=== PATIENT | male | born 1935 | race Caucasian/White ===

== ENCOUNTER → 2017-10-29 | Outpatient (CLI) | payer OTHER, MEDICARE | LOC: BHLMT 11:00 | PROVIDERS: ATTEND Internal Medicine Interventional Cardiology | DX: I48.91 Unspecified atrial fibrillation (principal); I44.2 Atrioventricular block, complete; Z95.0 Presence of cardiac pacemaker; Z95.1 Presence of aortocoronary bypass graft | CPT/HCPCS: 93017-PO ==

== ENCOUNTER → 2017-10-30 | Outpatient (CLI) | payer OTHER, MEDICARE | LOC: BHLMT 09:00 | PROVIDERS: ATTEND Internal Medicine Cardiovascular Disease | DX: I48.91 Unspecified atrial fibrillation (principal); I05.9 Rheumatic mitral valve disease, unspecified; I07.9 Rheumatic tricuspid valve disease, unspecified | CPT/HCPCS: 93306-PO ==

== ENCOUNTER → 2018-07-15 | Outpatient (CLI) | payer OTHER, MEDICARE | LOC: BHLMT 13:30 | PROVIDERS: ATTEND Internal Medicine Cardiovascular Disease | DX: I48.0 Paroxysmal atrial fibrillation (principal); I44.2 Atrioventricular block, complete; I07.1 Rheumatic tricuspid insufficiency; I25.10 Atherosclerotic heart disease of native coronary artery without angina pectoris; R60.9 Edema, unspecified; R06.09 Other forms of dyspnea; Z98.890 Other specified postprocedural states; Z95.2 Presence of prosthetic heart valve; Z95.0 Presence of cardiac pacemaker | CPT/HCPCS: 93005-PO ==

== ENCOUNTER 2018-07-30 11:38 | Day surgery (SDC) | payer OTHER, MEDICARE ==
[2018-07-30] MEDS ORDERED: fentaNYL 100 MCG/2 ML INJ IVP ONE (11:39)
[2018-07-30] MEDS ORDERED: NS 500 ML IV ONE (11:39)
[2018-07-30] MEDS ORDERED: MIDAZOLAM 2 MG/2 ML VIAL IVP ONE (11:39)
[2018-07-30] MEDS ORDERED: ATROPINE SULFATE 1 MG/10 ML SYR IVP ONE (11:39)
[2018-07-30 12:52] LABS: INR 2.1 (0.83-1.16); PROTIME(PATIENT) 23.6 SEC (12.0-15.0)
[2018-07-30] MEDS ORDERED: PROPOFOL 200 MG/20 ML VIAL ONE (12:53)
--- NOTE | 2018-07-30 13:09 | PDANEPAE ---
ANE History of Present Illness Cv ANE Past Medical History - Pulmonary History Hx Oxygen in Use at Home: No Hx Sleep Apnea: No ANE Review of Systems Review of Systems: - Pacemaker Date Pacemaker Last Checked: 01/14/12 ANE Patient History - Allergies Allergies/Adverse Reactions: PEANUTS/TOMATOES/CITRUS Allergy (Mild, Uncoded 06/24/12 09:48) NOSE "RUNS" - Home Medications Home Medications: Amiodarone HCl 200 mg PO BID 07/30/18 [Last Taken 07/30/18] Aspirin EC [Aspirin EC 81 mg (*)] 81 mg PO DAILY 07/30/18 [Last Taken Unknown] Atorvastatin Calcium 40 mg PO HS 07/30/18 [Last Taken Unknown] Calcium Carbonate/Vitamin D3 [CALCIUM 600 + VIT D TABLET] 2 cap PO DAILY [Last Taken Unknown] Coumadin 1MG (*) 2.5 mg PO DAILY 07/30/18 [Last Taken Unknown] Furosemide [Lasix 40 MG (*)] 40 mg PO DAILY 07/30/18 [Last Taken Unknown] Metoprolol Tartrate 12.5 mg PO BID 07/30/18 [Last Taken Unknown] Multivitamin [One-Daily Multi-Vitamin] 1 tab PO DAILY 07/30/18 [Last Taken Unknown] Omeprazole 20 mg PO DAILY 07/30/18 [Last Taken Unknown] Tamsulosin HCl 0.4 mg PO DAILY 07/30/18 [Last Taken Unknown] Vit C/Vit E AC/Lut/Copper/Zinc [Preservision Lutein Softgel] 1 cap PO BID [Last Taken Unknown] - Smoking Hx Smoking Status: Never smoked ANE Labs/Vital Signs - Labs Result Diagrams: 07/30/18 11:45 - Vital Signs Height: 172.72 cm Weight: 65.771 kg ANE Physical Exam - Airway Neck exam: FROM Mallampati Score: Class 2 Mouth exam: normal dental/mouth exam - Pulmonary Pulmonary: clear to auscultation - Cardiovascular Cardiovascular: irregularly irregular - ASA Status ASA Status: II ANE Anesthesia Plan Anesthesia Plan: GA with mask
[2018-07-30] MEDS ORDERED: NALOXONE HCL 0.4 MG/ML INJ IVP PRN (13:10)
--- NOTE | 2018-07-30 13:10 | POSTANESTH ---
Post Anesthetic Evaluation Cardiovascular Status: Normal, Stable Respiratory Status: Normal, Stable Level of Consciousness/Mental Status: Can Participate in Eval, Mildly Sleepy, Arousable Pain Control: Adequate, Prn Tx Ordered Nausea/Vomiting Control: Adequate, Prn Tx Ordered Complications Possibly Related to Anesthesia: None Noted
--- NOTE | 2018-07-30 13:31 | PDHPUP ---
History & Physical Update H&P update statement: This history and physical update is based on an assessment of the patient which was completed after admission or registration (within 24 hours), but prior to the surgery/procedure. H&P update: H&P reviewed & patient examined, no change in patient's condition since H&P completed
--- NOTE | 2018-07-30 13:32 | PDCARD ---
Cardioversion Procedure Procedure: electrical cardioversion Indications: atrial fibrillation Consent: signed and in chart Anticoagulation: warfarin Procedural Details: Pads were placed in anterior-posterior position. Synchronized cardioversion attempt #1: 200J Results: other (Dual chamber paced rhythm.) Conclusions: successful cardioversion
--- NOTE | 2018-07-31 19:52 | CPEKG ---
Test Reason : OPEN Blood Pressure : / mmHG Vent. Rate : 082 BPM Atrial Rate : 082 BPM P-R Int : 130 ms QRS Dur : 181 ms QT Int : 489 ms P-R-T Axes : -43 -65 101 degrees QTc Int : 572 ms Atrial-ventricular dual-paced rhythm Confirmed by Deonte Amato ([id number]) on 07/31/2018 7:52:10 PM Referred By: Flakito Malin Confirmed By:Deonte Amato
--- NOTE | 2018-07-31 20:03 | CPEKG ---
Test Reason : OPEN Blood Pressure : / mmHG Vent. Rate : 082 BPM Atrial Rate : 192 BPM P-R Int : 033 ms QRS Dur : 166 ms QT Int : 457 ms P-R-T Axes : 000 -60 102 degrees QTc Int : 534 ms Ventricular-paced rhythm Confirmed by Deonte Amato ([id number]) on 07/31/2018 8:02:46 PM Referred By: Flakito Malin Confirmed By:Deonte Amato
== END 2018-07-30 15:00 | disposition home or self-care (01) ==
LOC: FCATH 11:38
PROVIDERS: ATTEND Internal Medicine Cardiovascular Disease
PROC: 5A2204Z Restoration of Cardiac Rhythm, Single (ICD-10-PCS; principal; 2018-07-30)
DX: I48.91 Unspecified atrial fibrillation (principal); Z79.899 Other long term (current) drug therapy
CPT/HCPCS: J0461; J2704

== ENCOUNTER 2018-08-25 11:30 | Inpatient (IN) | payer OTHER, MEDICARE ==
--- NOTE | 2018-08-25 12:15 | EDPHY ---
H & P Time Seen by Provider: 08/25/18 11:51 HPI/ROS: HPI Rib fractures. Difficulty breathing. 83-year-old male by private vehicle with his . He is currently on Coumadin for atrial fibrillation. [place]. He fell while on skis and landed on his left chest wall. He was wearing a helmet. He presented to the emergency department in [facility] with complaint of left anterior lateral rib pain. He had a CT scan Saturday evening was diagnostic for multiple left-sided rib fractures, approximately 6, they offered him admission but he went home and then returned to the emergency department on Saturday morning had a repeat CT scan which did not show any significant effusion or pulmonary contusions and he was discharged to home with oxygen. He comes in our emergency department now with complaint of difficulty breathing and unable to "cough stuff up ". He has had no headache. Denies any neck pain. No nausea or vomiting. No confusion. Denies extremity pain. ROS: Constitutional: No fever, no chills. No weakness. Eyes: No discharge. No changes in vision. ENT: No sore throat. No nasal congestion or rhinorrhea. Respiratory: No cough. As above. Cardiac: No chest pain, no palpitations. Gastrointestinal: No abdominal pain, no vomiting, no diarrhea. Genitourinary: No hematuria. No dysuria or increased frequency with urination. Musculoskeletal: No back pain. No neck pain. No myalgias or arthralgias. Skin: No rashes. Neurological: No headache. No focal weakness or altered sensation. Past medical history: Coronary artery disease, pulmonary hypertension, CABG, AFib/flutter, on Coumadin. Social history: Nonsmoker. Here with his . No alcohol. Physical Exam: General Appearance: Alert, he is not in distress. Intermittent wet sounding cough. This patient is responding to questions appropriately and in full sentences. This patient appears well-hydrated and well-nourished. Head: Normocephalic atraumatic. Face: Facial bones are stable on palpation. Eyes: Pupils equal and round and reactive to light, no pallor or injection. No lid erythema or edema. Respiratory: He does not have retractions. He has significant rhonchi left base and left mid lung colon. No tachypnea. Intermittent wet sounding cough. He has tenderness on palpation anterior axillary line over the mid and lower ribs. Cardiovascular: Regular rate and rhythm. No murmur. Gastrointestinal: Abdomen is soft and nontender, no masses, bowel sounds normal. Neurological: Motor sensory function is intact. Cranial nerves are normal. Cerebellar function intact. Skin: Warm and dry, no rashes. No lacerations, abrasions or contusions. Musculoskeletal: Neck is supple and nontender. The trachea is midline. No midline cervical, thoracic, lumbar or sacral tenderness on palpation. No flank tenderness on palpation. Extremities are symmetrical, full range of motion. All joints in the bilateral upper and bilateral lower extremities range without pain or impingement. No tenderness on palpation of the long bones in the bilateral upper and bilateral lower extremities. Psychiatric: No agitation. No depression. Database: EKG: Imaging: PA chest with left-sided rib series x-ray: Significant for 7 left-sided anterior lateral rib fractures with minimal displacement. No pneumothorax. No hemothorax/pleural effusion noted. No significant pulmonary contusions. Interpreted by me. Procedures: Emergency department course: Triage vital signs reviewed. Pulse oximetry on room air low at 87 to 88%. Vital signs are otherwise normal. On 3 L of nasal cannula oxygen is 94%. He does have a CT rum with his CT imaging from Saturday evening and Saturday morning. This will be loaded on to our system. A PA chest with left-sided rib series x-ray will be obtained to evaluate for any acute developing pneumonitis, pulmonary contusions or effusion. 2:05 p.m., spoke with on-call trauma surgeon Dr. Melvin Youssef. Case discussed in detail with him. We will admit this patient to the hospitalist service primarily and Dr. Youssef will consult for pain management. No acute surgical intervention is required at this time. 2:15 p.m., spoke with on-call hospitalist Dr. Brambila, case discussed in detail with her. She accepts this patient for admission to the hospitalist service with Trauma surgery to consult for trauma related management. I discussed the patient's elevated INR and the need for pain management secondary to his rib fractures. The patient's remaining emergency department course under my care has been uneventful. The patient was admitted in stable condition. Results of all diagnostic testing discussed with the patient. Plan of management discussed with both him and his . All of their questions were answered. Differential Diagnosis: The differential diagnosis on this patient includes but is not limited to multiple rib fractures, hypoxia. Pneumothorax, hemothorax, pulmonary contusions unlikely. This represents a partial list of diagnoses considered. These considerations are based on history, physical exam, past history, reassessment and diagnostic testing. Smoking Status: Never smoked Constitutional: Initial Vital Signs Temperature (C) 36.6 C 08/25/18 11:45 Heart Rate 82 08/25/18 11:45 Respiratory Rate 16 08/25/18 11:45 Blood Pressure 111/98 H 08/25/18 11:45 O2 Sat (%) 88 L 08/25/18 11:45 O2 Delivery Mode Nasal Cannula O2 (L/minute) 2 Allergies/Adverse Reactions: PEANUTS/TOMATOES/CITRUS Allergy (Mild, Uncoded 06/24/12 09:48) NOSE "RUNS" Home Medications: Medication Instructions Recorded Amiodarone HCl 200 mg PO BID 07/30/18 Aspirin EC [Aspirin EC 81 mg (*)] 81 mg PO DAILY 07/30/18 Atorvastatin Calcium 40 mg PO HS 07/30/18 Calcium Carbonate/Vitamin D3 2 cap PO DAILY 07/30/18 [CALCIUM 600 + VIT D TABLET] Coumadin 1MG (*) 2.5 mg PO DAILY 07/30/18 Furosemide [Lasix 40 MG (*)] 40 mg PO DAILY 07/30/18 Metoprolol Tartrate 12.5 mg PO BID 07/30/18 Multivitamin [One-Daily 1 tab PO DAILY 07/30/18 Multi-Vitamin] Omeprazole 20 mg PO DAILY 07/30/18 Tamsulosin HCl 0.4 mg PO DAILY 07/30/18 Vit C/Vit E AC/Lut/Copper/Zinc 1 cap PO BID 07/30/18 [Preservision Lutein Softgel] Medical Decision Making - Diagnostics Imaging Results: Imaging Impressions Ribs w/Chest X-Ray 08/25/18 12:07 Impression: 7 acute, mildly displaced, left rib fractures. - Data Points Laboratory Results: Laboratory Results 08/25/18 12:15 08/25/18 12:15 08/25/18 08/25/18 08/25/18 12:15 12:15 12:15 WBC 8.38 10^3/uL 10^3/uL (3.80-9.50) RBC 3.51 10^6/uL L 10^6/uL (4.40-6.38) Hgb 11.0 g/dL L g/dL (13.7-17.5) Hct 33.5 % L % (40.0-51.0) MCV 95.4 fL fL (81.5-99.8) MCH 31.3 pg pg (27.9-34.1) MCHC 32.8 g/dL g/dL (32.4-36.7) RDW 13.9 % % (11.5-15.2) Plt Count 99 10^3/uL L 10^3/uL (150-400) MPV 9.4 fL fL (8.7-11.7) Neut % (Auto) 85.5 % H % (39.3-74.2) Lymph % (Auto) 6.2 % L % (15.0-45.0) [place] % (Auto) 7.8 % % (4.5-13.0) Eos % (Auto) 0.0 % L % (0.6-7.6) Baso % (Auto) 0.1 % L % (0.3-1.7) Nucleat RBC Rel Count 0.0 % % (0.0-0.2) Absolute Neuts (auto) 7.16 10^3/uL H 10^3/uL (1.70-6.50) Absolute Lymphs (auto) 0.52 10^3/uL L 10^3/uL (1.00-3.00) Absolute Monos (auto) 0.65 10^3/uL 10^3/uL (0.30-0.80) Absolute Eos (auto) 0.00 10^3/uL L 10^3/uL (0.03-0.40) Absolute Basos (auto) 0.01 10^3/uL L 10^3/uL (0.02-0.10) Absolute Nucleated RBC 0.00 10^3/uL 10^3/uL (0-0.01) Immature Gran % 0.4 % % (0.0-1.1) Immature Gran # 0.03 10^3/uL 10^3/uL (0.00-0.10) RBC/WBC/PLT Morphology TNP Platelet Estimate TNP PT 46.0 SEC H SEC (12.0-15.0) INR 5.34 H* (0.83-1.16) APTT 49.0 SEC H SEC (23.0-38.0) Sodium 132 mEq/L L mEq/L (135-145) Potassium 5.0 mEq/L mEq/L (3.5-5.2) Chloride 100 mEq/L mEq/L (97-110) Carbon Dioxide 23 mEq/l mEq/l (22-31) Anion Gap 9 mEq/L mEq/L (6-14) BUN 52 mg/dL H mg/dL (7-23) Creatinine 1.3 mg/dL mg/dL (0.7-1.3) Estimated GFR 53 Glucose 106 mg/dL H mg/dL (70-100) Calcium 8.3 mg/dL L mg/dL (8.5-10.4) Departure - Departure Disposition: [facility] Inpatient Acute Clinical Impression: Multiple fractures of ribs, left side, initial encounter for closed fracture, Anticoagulated on Coumadin Referrals: KENNY JONES [Primary Care Provider] - As per Instructions
[2018-08-25 12:23] LABS: PLATELET COUNT 99 10^3/uL (150-400)
[2018-08-25 13:04] LABS: INR 5.34 (0.83-1.16)
[2018-08-25] MEDS ORDERED: HYDROCODONE/APAP 10/325 TAB PO PRN (15:04)
--- NOTE | 2018-08-25 16:04 | PDGENHP ---
History and Physical - Chief Complaint "trouble breathing" - History of Present Illness 83 y/o male fell skiing at [place] 3 days ago. He was seen at the hospital in [place] and found to have multiple left sided rib fx and he was advised to be admitted for observation. He declined and returned to the [place] with his . He had felt poorly for the week before he fell with a lingering URI and this seemed to get worse over the weekend. He saw his PCP, Dr. German, in [place] this morning because he was having trouble breathing. Dr. German recommended coming to the hospital for evaluation. He was seen in the ED and admitted to the Hospitalist service and Trauma service consultation was requested. He describes a low speed fall on nearly flat terrain and he admits that he felt tired at the end of the run. He was helmeted and did not hit his head or lose consciousness. He was able to ski over to the [facility], which [place] He denies MATTHEWS, visual or hearing disturbances, back pain, abdominal pain, weakness or paresthesias History Information - Allergies/Home Medication List Allergies/Adverse Reactions: PEANUTS/TOMATOES/CITRUS Allergy (Mild, Uncoded 06/24/12 09:48) NOSE "RUNS" Home Medications: Amiodarone HCl 400 mg PO DAILY 07/30/18 [Last Taken 08/25/18] Aspirin EC [Aspirin EC 81 mg (*)] 81 mg PO DAILY 07/30/18 [Last Taken 08/25/18] Calcium Carbonate/Vitamin D3 [CALCIUM 600 + VIT D TABLET] 1 cap PO DAILY [Last Taken 08/25/18] Furosemide [Lasix 40 MG (*)] 40 mg PO BID 07/30/18 [Last Taken 08/25/18] Omeprazole 20 mg PO DAILY 07/30/18 [Last Taken 08/25/18] Vit C/Vit E AC/Lut/Copper/Zinc [Preservision Lutein Softgel] 1 cap PO BID [Last Taken 08/25/18] Warfarin Sodium [Coumadin 2MG (*)] 2 mg PO HS 07/30/18 [Last Taken 08/24/18] Albuterol [Proventil Inhaler HFA (*)] 1 - 2 puffs IH Q4H PRN 08/25/18 [Last Taken Unknown] HYDROcodone/APAP 325 [[place] 10325 (*)] 0.5 - 1 tab PO Q6HRS PRN 08/25/18 [ Last Taken 08/25/18 1 tab] Metoprolol Tartrate [Lopressor 25 mg (*)] 12.5 mg PO BID 08/25/18 [Last Taken ] Multivitamins [Multivitamin (*)] 1 each PO DAILY 08/25/18 [Last Taken 08/25/18] Simvastatin [Zocor] 20 mg PO HS 08/25/18 [Last Taken 08/24/18] Tamsulosin HCl [Flomax 0.4 MG (*)] 0.4 mg PO DAILY 08/25/18 [Last Taken 08/25/18 ] I have personally reviewed and updated: family history, medical history, social history, surgical history - Past Medical History atrial fibrillation (s/p cardioversion) - Surgical History Reports: pacemaker/AICD, coronary stent - Family History Positive for: CAD - Social History Smoking Status: Never smoked Alcohol Use: Rarely Drug Use: None Additional social history: here with Review of Systems Review of Systems: Constitutional: Reports: recent injury, recent illness (URI one week prior to fall with persistant/worsening symptoms after injury) Cardiac: Reports: chest pain Respiratory: Reports: cough, shortness of breath, wheezing Gastrointestinal: Reports: constipation Muscolosketal: Reports: no symptoms Neurological: Reports: no symptoms Hematologic/Lymphatic: Reports: no symptoms Immunologic/Allergy: Reports: other (allergies to peanuts, tomatoes, citrus) Physical Exam Physical Exam: Temp Pulse Resp BP Pulse Ox 36.5 C 80 20 140/86 H 98 08/25/18 15:40 08/25/18 15:40 08/25/18 15:40 08/25/18 15:40 08/25/18 15:40 O2 (L/minute) 2 Lab Data & Imaging Review 08/25/18 12:15 08/25/18 12:15 WBC 8.38 10^3/uL (3.80-9.50) 08/25/18 12:15 RBC 3.51 10^6/uL (4.40-6.38) L 08/25/18 12:15 Hgb 11.0 g/dL (13.7-17.5) L 08/25/18 12:15 Hct 33.5 % (40.0-51.0) L 08/25/18 12:15 MCV 95.4 fL (81.5-99.8) 08/25/18 12:15 MCH 31.3 pg (27.9-34.1) 08/25/18 12:15 MCHC 32.8 g/dL (32.4-36.7) 08/25/18 12:15 RDW 13.9 % (11.5-15.2) 08/25/18 12:15 Plt Count 99 10^3/uL (150-400) L 08/25/18 12:15 MPV 9.4 fL (8.7-11.7) 08/25/18 12:15 Neut % (Auto) 85.5 % (39.3-74.2) H 08/25/18 12:15 Lymph % (Auto) 6.2 % (15.0-45.0) L 08/25/18 12:15 [place] % (Auto) 7.8 % (4.5-13.0) 08/25/18 12:15 Eos % (Auto) 0.0 % (0.6-7.6) L 08/25/18 12:15 Baso % (Auto) 0.1 % (0.3-1.7) L 08/25/18 12:15 Nucleat RBC Rel Count 0.0 % (0.0-0.2) 08/25/18 12:15 Absolute Neuts (auto) 7.16 10^3/uL (1.70-6.50) H 08/25/18 12:15 Absolute Lymphs (auto) 0.52 10^3/uL (1.00-3.00) L 08/25/18 12:15 Absolute Monos (auto) 0.65 10^3/uL (0.30-0.80) 08/25/18 12:15 Absolute Eos (auto) 0.00 10^3/uL (0.03-0.40) L 08/25/18 12:15 Absolute Basos (auto) 0.01 10^3/uL (0.02-0.10) L 08/25/18 12:15 Absolute Nucleated RBC 0.00 10^3/uL (0-0.01) 08/25/18 12:15 Immature Gran % 0.4 % (0.0-1.1) 08/25/18 12:15 Immature Gran # 0.03 10^3/uL (0.00-0.10) 08/25/18 12:15 RBC/WBC/PLT Morphology TNP 08/25/18 12:15 Platelet Estimate TNP 08/25/18 12:15 PT 46.0 SEC (12.0-15.0) H 08/25/18 12:15 INR 5.34 (0.83-1.16) H* 08/25/18 12:15 APTT 49.0 SEC (23.0-38.0) H 08/25/18 12:15 Sodium 132 mEq/L (135-145) L 08/25/18 12:15 Potassium 5.0 mEq/L (3.5-5.2) 08/25/18 12:15 Chloride 100 mEq/L (97-110) 08/25/18 12:15 Carbon Dioxide 23 mEq/l (22-31) 08/25/18 12:15 Anion Gap 9 mEq/L (6-14) 08/25/18 12:15 BUN 52 mg/dL (7-23) H 08/25/18 12:15 Creatinine 1.3 mg/dL (0.7-1.3) 08/25/18 12:15 Estimated GFR 53 08/25/18 12:15 Glucose 106 mg/dL (70-100) H 08/25/18 12:15 Calcium 8.3 mg/dL (8.5-10.4) L 08/25/18 12:15 Assessment & Plan Assessment: Anticoagulated on Coumadin (Acute) Multiple fractures of ribs, left side, initial encounter for closed fracture ( Acute)
[2018-08-25] MEDS ORDERED: MAGNESIUM HYDROXIDE 30 ML UDCUP PO PRN (16:19)
[2018-08-25] MEDS ORDERED: LACTULOSE 20 GM/30 ML UDCUP PO PRN (16:19)
[2018-08-25] MEDS ORDERED: BISACODYL 10 MG SUPP PR PRN (16:19)
[2018-08-25] MEDS ORDERED: POLYETHYLENE GLYCOL 3350 17 GM PKT PO PRN (16:19)
--- NOTE | 2018-08-25 16:54 | ECHO ---
[email or web address] [address] Main: [phone] Echocardiography Examination Transthoracic Name: ALVAREZ GALE MR#: [id number] Study Date: 08/25/2018 Study Time: 04:14 PM Date of : 1935 Age: 83 year(s) Height: 172.7 cm (68 in.) Weight: 68.49 kg (151 lb.) BSA: 1.81 m2 Gender: Male Examination: Limited Echo Contrast: Image Quality: Adequate Rhythm: Heart Rate: BP: 140 mmHg/86 mmHg Indication: wheezing/JVD/pacer-cardioversion on 07/30/18 Procedure Staff Referring Physician: Clinical Quality Manager: Rehana Nj RDCS Reading Physician: Rasheed Brown MD Requesting Provider: Indication: wheezing/JVD/pacer-cardioversion on 07/30/18 Measurements Chambers AV/MV Label Value Normal Value Label Value Normal Value EF lower range (%) 55 % MV PGmax 16 mmHg EF upper range (%) 60 % MV PGmean 5 mmHg MV VTI 42.9 cm TV/PV Label Value Normal Value TR Pmax 37 mmHg TR Vmax 3.04 m/s TV PGmax 7 mmHg TV PGmean 4 mmHg TV Vmax, Caliper 1.32 m/s (0.3m/s - 0.7m/s) TV Vmax, Curve 1.32 m/s (0.3m/s - 0.7m/s) TV Vmean 0.92 m/s TV VTI 38.7 cm Conclusions Left Ventricle: Left ventricle is normal in size. Normal global systolic left ventricular function. EF range is estimated at 55 % - 60 %. 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 There is marked thickening of the prosthetic mitral valve leaflets. Mild MV prosthesis regurgitation. Cannot rule out endocarditis. Suggest CHRIS. Tricuspid Valve: A bioprosthesis is present in the tricuspid valve. Severe prosthesis regurgitation. Overall Conclusions: Consider CHRIS if clinically indicated. Findings Left Ventricle: Left ventricle is normal in size. Normal global systolic left ventricular function. EF evaluated by visual assessment. EF range is estimated at 55 % - 60 %. Mitral Valve: A bioprosthesis is present in the mitral valve. There is marked thickening of the prosthetic mitral valve leaflets. Mild MV prosthesis regurgitation. Cannot rule out endocarditis. Suggest CHRIS. Tricuspid Valve: There is moderate to marked tricuspid thickening. 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 Severe prosthesis regurgitation. Pericardium: No pericardial effusion. Exam Details Procedure Ordered: Limited Echo Procedure Status: Routine study Image Quality: Adequate Facility Location: Cardiac Echo 1 (No Signature Object) Patient: ALVAREZ GALE Study Date: 08/25/2018 Page 2 of 2 04:14 PM [id number]
[2018-08-25] MEDS: ALBUTEROL 60 PUFFS/8 GM MDI IH PRN (17:53)
--- NOTE | 2018-08-25 17:57 | SOAPPROG ---
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 Brown There should be no trauma/surgical contraindications to CHRIS Patient is a moderate increased risk for pneumonia with resolving URI/bronchitis
--- NOTE | 2018-08-25 18:41 | PDGENHP ---
<Valencia Brambila - Last Filed: 08/25/18 19:43> History and Physical - Chief Complaint Shortness of breath - History of Present Illness This is an 83 y/o male w/ atrial fibrillation on warfarin, CAD, pulmonary HTN, valve repair, CABG presenting to the emergency room c/o shortness of breath. Saturday, he was skiing w/ his in [place] on a flat surface when he fell, his skiing poles jabbing him on his left side on the way down. He denies LOC or hitting his head. He had enough pain to the lateral side of his chest wall he went to [facility]der [facility] who thought it was contusions and nothing was broken. No images took place. Saturday, the pain continued and he went to an ED in [place] who took CT scans which showed approximately 6 left-sided rib fractures. He was offered admission for observation but he declined. He returned to the ED in [place] on Saturday w/ c/o difficulty breathing. Since he declined admission and wanted to come back to [place], ED gave him oxygen supplementation to take as he would saturated 88% on RA. He has been trying to get over a cold the last week. Denies chest pain, palpitations, nausea. He is being admitted for further testing and treatment. Dr. Christopher Youssef consulting for pain management as surgical intervention for rib fractures are not warranted at this time. History Information - Allergies/Home Medication List Allergies/Adverse Reactions: PEANUTS/TOMATOES/CITRUS Allergy (Mild, Uncoded 06/24/12 09:48) NOSE "RUNS" Home Medications: Amiodarone HCl 400 mg PO DAILY 07/30/18 [Last Taken 08/25/18] Aspirin EC [Aspirin EC 81 mg (*)] 81 mg PO DAILY 07/30/18 [Last Taken 08/25/18] Calcium Carbonate/Vitamin D3 [CALCIUM 600 + VIT D TABLET] 1 cap PO DAILY [Last Taken 08/25/18] Furosemide [Lasix 40 MG (*)] 40 mg PO BID 07/30/18 [Last Taken 08/25/18] Omeprazole 20 mg PO DAILY 07/30/18 [Last Taken 08/25/18] Vit C/Vit E AC/Lut/Copper/Zinc [Preservision Lutein Softgel] 1 cap PO BID [Last Taken 08/25/18] Warfarin Sodium [Coumadin 2MG (*)] 2 mg PO HS 07/30/18 [Last Taken 08/24/18] Albuterol [Proventil Inhaler HFA (*)] 1 - 2 puffs IH Q4H PRN 08/25/18 [Last Taken Unknown] HYDROcodone/APAP 10/325 [[place] [address] (*)] 0.5 - 1 tab PO Q6HRS PRN 08/25/18 [ Last Taken 08/25/18 1 tab] Metoprolol Tartrate [Lopressor 25 mg (*)] 12.5 mg PO BID 08/25/18 [Last Taken ] Multivitamins [Multivitamin (*)] 1 each PO DAILY 08/25/18 [Last Taken 08/25/18] Simvastatin [Zocor] 20 mg PO HS 08/25/18 [Last Taken 08/24/18] Tamsulosin HCl [Flomax 0.4 MG (*)] 0.4 mg PO DAILY 08/25/18 [Last Taken 08/25/18 ] I have personally reviewed and updated: family history, medical history, social history, surgical history - Past Medical History atrial fibrillation (s/p cardioversion) - Surgical History Reports: pacemaker/AICD, coronary stent - Family History Positive for: CAD - Social History Smoking Status: Never smoked Alcohol Use: Rarely Drug Use: None Additional social history: here with Review of Systems Review of Systems: ROS: 10pt was reviewed & negative except for what was stated in HPI & below Physical Exam Physical Exam: Lab data and imaging were reviewed. Case discussed w/admitting physician, Dr. Miguelina Feldman. INR: 5.34 Na: 132 K: 5.0 BUN/Cr: 52/1.3 Temp Pulse Resp BP Pulse Ox 36.4 C 82 18 114/75 97 08/25/18 16:36 08/25/18 16:36 08/25/18 16:36 08/25/18 16:36 08/25/18 16:36 O2 (L/minute) 3 Constitutional: uncomfortable, other (Does not appear to be in any distress) Eyes: PERRL, anicteric sclera, EOMI Ears, Nose, Mouth, Throat: moist mucous membranes, hearing normal, ears appear normal, no oral mucosal ulcers Cardiovascular: systolic murmur, JVD, edema (BLE non-pitting edema) Peripheral Pulses: 2+: dorsalis-pedis (R) (Radial 2+), dorsalis-pedis (L) ( Radial 2+) Respiratory: expiratory wheeze, rhonchi Gastrointestinal: normoactive bowel sounds, soft, non-tender abdomen, no palpable masses Genitourinary: no bladder fullness, no bladder tenderness Skin: other (Hematoma lateral chest wall ) Musculoskeletal: pain with ROM Neurologic: AAOx3, sensation intact bilaterally, CN II-XII Intact Psychiatric: interacting appropriately, not anxious, not encephalopathic, thought process linear Lymph, Heme, Immunologic: no cervical LAD, no supraclavicular LAD Lab Data & Imaging Review 08/25/18 12:15 08/25/18 12:15 WBC 8.38 10^3/uL (3.80-9.50) 08/25/18 12:15 RBC 3.51 10^6/uL (4.40-6.38) L 08/25/18 12:15 Hgb 11.0 g/dL (13.7-17.5) L 08/25/18 12:15 Hct 33.5 % (40.0-51.0) L 08/25/18 12:15 MCV 95.4 fL (81.5-99.8) 08/25/18 12:15 MCH 31.3 pg (27.9-34.1) 08/25/18 12:15 MCHC 32.8 g/dL (32.4-36.7) 08/25/18 12:15 RDW 13.9 % (11.5-15.2) 08/25/18 12:15 Plt Count 99 10^3/uL (150-400) L 08/25/18 12:15 MPV 9.4 fL (8.7-11.7) 08/25/18 12:15 Neut % (Auto) 85.5 % (39.3-74.2) H 08/25/18 12:15 Lymph % (Auto) 6.2 % (15.0-45.0) L 08/25/18 12:15 [place] % (Auto) 7.8 % (4.5-13.0) 08/25/18 12:15 Eos % (Auto) 0.0 % (0.6-7.6) L 08/25/18 12:15 Baso % (Auto) 0.1 % (0.3-1.7) L 08/25/18 12:15 Nucleat RBC Rel Count 0.0 % (0.0-0.2) 08/25/18 12:15 Absolute Neuts (auto) 7.16 10^3/uL (1.70-6.50) H 08/25/18 12:15 Absolute Lymphs (auto) 0.52 10^3/uL (1.00-3.00) L 08/25/18 12:15 Absolute Monos (auto) 0.65 10^3/uL (0.30-0.80) 08/25/18 12:15 Absolute Eos (auto) 0.00 10^3/uL (0.03-0.40) L 08/25/18 12:15 Absolute Basos (auto) 0.01 10^3/uL (0.02-0.10) L 08/25/18 12:15 Absolute Nucleated RBC 0.00 10^3/uL (0-0.01) 08/25/18 12:15 Immature Gran % 0.4 % (0.0-1.1) 08/25/18 12:15 Immature Gran # 0.03 10^3/uL (0.00-0.10) 08/25/18 12:15 RBC/WBC/PLT Morphology TNP 08/25/18 12:15 Platelet Estimate TNP 08/25/18 12:15 PT 46.0 SEC (12.0-15.0) H 08/25/18 12:15 INR 5.34 (0.83-1.16) H* 08/25/18 12:15 APTT 49.0 SEC (23.0-38.0) H 08/25/18 12:15 Sodium 132 mEq/L (135-145) L 08/25/18 12:15 Potassium 5.0 mEq/L (3.5-5.2) 08/25/18 12:15 Chloride 100 mEq/L (97-110) 08/25/18 12:15 Carbon Dioxide 23 mEq/l (22-31) 03/11/19 12:15 Anion Gap 9 mEq/L (6-14) 08/25/18 12:15 BUN 52 mg/dL (7-23) H 08/25/18 12:15 Creatinine 1.3 mg/dL (0.7-1.3) 08/25/18 12:15 Estimated GFR 53 08/25/18 12:15 Glucose 106 mg/dL (70-100) H 08/25/18 12:15 Calcium 8.3 mg/dL (8.5-10.4) L 08/25/18 12:15 Assessment & Plan Plan: 83 y/o male w/ significant cardiac hx of a-fib, on AC, pacemaker, valve repair and recent cardioversion (July 2018) presenting w/ difficulty breathing. He has been trying to get over a cold he had about a week ago. 1. Rib fractures 2/2 mechanical fall -Surgery consulted. Dr. Youssef w/ pain management -Pulmonary hygiene including IS -Up ad jinny w/ assistance -Cont tele/pulse ox monitoring -CXR w/ 6-7 left sided rib fractures; no pneumothorax, effusion, or PNA. Continue to monitor. -OT/PT to evaluate and treat 2. Suspected acute congestive heart failure 2/2 failed valve replacements: Lung sounds wet, rhonchi, expiratory wheezes. +JVD, BLE non-pitting edema. Requires 2L O2 to saturate at 92-93%. ECHO reveals EF 55-60%, MV prosthesis (replaced in 2015) w/ marked thickening of the bioprosthetic MV leaflets w/ mild regurg and TV bioprosthesis (replaced in 2015) moderate to marked tricuspid thickening w/ severe regurg. -Cardiology consulted. I spoke to Dr. Brown who read the echo to discuss the case further. We both agree his failed valve replacements need to be addressed however it is not critical at this time. CHRIS is recommended to r/o endocarditis however this is not urgent considering the pt's current condition. He is an older male w/ rib fractures and the need to weigh the risks vs benefits should be considered. He is hemodynamically stable. The possibility of developing PNA is high. I will appreciate cards consult in AM. I spoke to on-call Dr. Dave who will evaluate the pt tomorrow but recommended giving Lasix. Will continue pt's home PO Lasix. -Pt was cardioverted early July [address] Malin. I gave Dr. Malin a courtesy call to update him on the status of pt. -Cont tele/pulse ox monitoring 3. Acute hypoxic respiratory failure 2/2 multiple factors (cardiac, rib fx, query lingering cold symptoms): see above. Treat cold symptoms conservatively. Cont pulse ox monitoring. 4. A-fib: on warfarin w/ elevated INR upon arrival 5.34. Holding warfarin tonight. Will recheck INR in AM. 5. Pacemaker: AV-paced. Was recently interrogated w/ no concerns. It was noted he is nearing ROGER and will need to begin to send cards monthly transmissions. On amiodarone. Diet: Cardiac VTE ppx: Up ad jinyn w/ assistance, SCDs, warfarin once in therapeutic range Code: Full Dispo: Admit to inpatient <[email or web address] - Last Filed: 08/25/18 20:20> History and Physical - History of Present Illness Review of Systems Review of Systems: Physical Exam Physical Exam: Temp Pulse Resp BP Pulse Ox 36.7 C 83 18 116/64 90 L 08/25/18 19:37 08/25/18 19:37 08/25/18 19:37 08/25/18 19:37 08/25/18 19:37 O2 (L/minute) 2 Lab Data & Imaging Review 08/25/18 12:15 08/25/18 12:15 WBC 8.38 10^3/uL (3.80-9.50) 08/25/18 12:15 RBC 3.51 10^6/uL (4.40-6.38) L 08/25/18 12:15 Hgb 11.0 g/dL (13.7-17.5) L 08/25/18 12:15 Hct 33.5 % (40.0-51.0) L 08/25/18 12:15 MCV 95.4 fL (81.5-99.8) 08/25/18 12:15 MCH 31.3 pg (27.9-34.1) 08/25/18 12:15 MCHC 32.8 g/dL (32.4-36.7) 08/25/18 12:15 RDW 13.9 % (11.5-15.2) 08/25/18 12:15 Plt Count 99 10^3/uL (150-400) L 08/25/18 12:15 MPV 9.4 fL (8.7-11.7) 08/25/18 12:15 Neut % (Auto) 85.5 % (39.3-74.2) H 08/25/18 12:15 Lymph % (Auto) 6.2 % (15.0-45.0) L 08/25/18 12:15 [place] % (Auto) 7.8 % (4.5-13.0) 08/25/18 12:15 Eos % (Auto) 0.0 % (0.6-7.6) L 08/25/18 12:15 Baso % (Auto) 0.1 % (0.3-1.7) L 08/25/18 12:15 Nucleat RBC Rel Count 0.0 % (0.0-0.2) 08/25/18 12:15 Absolute Neuts (auto) 7.16 10^3/uL (1.70-6.50) H 08/25/18 12:15 Absolute Lymphs (auto) 0.52 10^3/uL (1.00-3.00) L 08/25/18 12:15 Absolute Monos (auto) 0.65 10^3/uL (0.30-0.80) 08/25/18 12:15 Absolute Eos (auto) 0.00 10^3/uL (0.03-0.40) L 08/25/18 12:15 Absolute Basos (auto) 0.01 10^3/uL (0.02-0.10) L 08/25/18 12:15 Absolute Nucleated RBC 0.00 10^3/uL (0-0.01) 08/25/18 12:15 Immature Gran % 0.4 % (0.0-1.1) 08/25/18 12:15 Immature Gran # 0.03 10^3/uL (0.00-0.10) 08/25/18 12:15 RBC/WBC/PLT Morphology TNP 08/25/18 12:15 Platelet Estimate TNP 08/25/18 12:15 PT 46.0 SEC (12.0-15.0) H 08/25/18 12:15 INR 5.34 (0.83-1.16) H* 08/25/18 12:15 APTT 49.0 SEC (23.0-38.0) H 08/25/18 12:15 Sodium 132 mEq/L (135-145) L 08/25/18 12:15 Potassium 5.0 mEq/L (3.5-5.2) 08/25/18 12:15 Chloride 100 mEq/L (97-110) 08/25/18 12:15 Carbon Dioxide 23 mEq/l (22-31) 08/25/18 12:15 Anion Gap 9 mEq/L (6-14) 08/25/18 12:15 BUN 52 mg/dL (7-23) H 08/25/18 12:15 Creatinine 1.3 mg/dL (0.7-1.3) 08/25/18 12:15 Estimated GFR 53 08/25/18 12:15 Glucose 106 mg/dL (70-100) H 08/25/18 12:15 Calcium 8.3 mg/dL (8.5-10.4) L 08/25/18 12:15 Assessment & Plan Assessment: Anticoagulated on Coumadin (Acute) Multiple fractures of ribs, left side, initial encounter for closed fracture ( Acute) Patient seen and evaluated independently and care plan reviewed with NOEMÍ Brambila. AGree with her plan as outlined above, please see separate documentation for further details.
[2018-08-25] MEDS ORDERED: ONDANSETRON 4 MG/2 ML VIAL IVP PRN (19:48)
[2018-08-25] MEDS ORDERED: ONDANSETRON DISINTEGRATING 4 MG TAB PO PRN (19:48)
[2018-08-25] MEDS ORDERED: ACETAMINOPHEN 325 MG TAB PO PRN (19:48)
[2018-08-25] MEDS ORDERED: HYDROcodone/CPM TUSSIONEX 5 ML UDSYR PO PRN (20:13)
--- NOTE | 2018-08-25 20:27 | HOSPPROG ---
Hospitalist Progress Note Assessment/Plan: 83 yo M with PMH that includes VHD, CAD and pulmonary htn presenting s/p skiing accident 3 days ago with multiple rib fractures and worsening issues with sob and acute hypoxic respiratory failure # acute hypoxic respiratory failure: patient with o2 sats in the mid to high 80s on arrival with significant wheezing and shortness of breath. CXR personally reviewed showing left sided 4-10 mildly displaced rib fractures with associated atelectasis, no ptx and no e/o pna or clear e/o chf exacerbation. Improved on supplemental o2, appreciate surgery input. IS, ambulation, OOB to chair, pain management for now. Will get repeat cxr in am. # multiple rib fractures: as above, started on rib protocol # VHD: patient with prosthetic MV with marked thickening and mild regurg and bioprosthetic TV iwth moderate-marked thickening and severe prosthetic regurg, also question of endocarditis on TTE with recommendation for CHRIS. Cardiology to consult in am and determine if CHRIS indicated currently. # CAD: nothing currently to suggest ACS, will get ecg and monitor on telemetry. Hx of CABG and stent, cardiology consulted as above. # LLE edema: patient states that this is chronic for him, no associated pain, defer US given chronicity but low threshold if concerns arise # ckd: creatinine at baseline, BUN slightly higher than usual baseline, will monitor, suspect pre renal azotemia in setting of above # anemia: slightly lower than recent baseline, no e/o acute bleeding, monitoring # IP status Patient new to my care. Old records reviewed and summarized as above. Care plan reviewed with NOEMÍ Brambila as above. Further hx obtained from patients present at bedside. Objective: Vital Signs Temp Pulse Resp BP Pulse Ox 36.7 C 83 18 116/64 90 L 08/25/18 19:37 08/25/18 19:37 08/25/18 19:37 08/25/18 19:37 08/25/18 19:37 08/24/18 08/25/18 08/26/18 05:59 05:59 05:59 Intake Total 500 Balance 500 PT 46.0 SEC (12.0-15.0) H 08/25/18 12:15 INR 5.34 (0.83-1.16) H* 08/25/18 12:15 ICD10 Worksheet Patient Problems: Problems Problem Status Onset Anticoagulated on Coumadin Acute Multiple fractures of ribs, left side, initial encounter for closed fracture Acute
[2018-08-25] MEDS: FUROSEMIDE 40 MG TAB PO SCH (20:28)
[2018-08-25] MEDS: METOPROLOL TARTRATE 25 MG TAB PO SCH (20:28)
[2018-08-25] MEDS: PRESERVISION AREDS2 FORMULA EYE VIT 1 EACH PO SCH (20:28)
[2018-08-25] MEDS: SENNOSIDES/DOCUSATE SODIUM TAB PO SCH (20:28)
[2018-08-25] MEDS: ATORVASTATIN CALCIUM 10 MG TAB PO SCH (20:29)
[2018-08-26 05:58] LABS: PLATELET COUNT 98 10^3/uL (150-400)
[2018-08-26 06:41] LABS: PROTIME(PATIENT) 46.9 SEC (12.0-15.0)
[2018-08-26 06:42] LABS: INR 5.48 (0.83-1.16)
[2018-08-26] MEDS: SENNOSIDES/DOCUSATE SODIUM TAB PO SCH ×2 (08:02→20:19)
[2018-08-26] MEDS: METOPROLOL TARTRATE 25 MG TAB PO SCH ×2 (08:02→20:19)
[2018-08-26] MEDS: TAMSULOSIN HCL 0.4 MG CAP PO SCH (08:03)
[2018-08-26] MEDS: PANTOPRAZOLE SODIUM 40 MG TAB PO SCH (08:03)
[2018-08-26] MEDS: CALCIUM CARB W/VIT D 500 MG TAB PO SCH (08:03)
[2018-08-26] MEDS: FUROSEMIDE 40 MG TAB PO SCH ×2 (08:03→15:42)
[2018-08-26] MEDS: MULTIVITAMINS 1 EACH TAB PO SCH (08:03)
[2018-08-26] MEDS: PRESERVISION AREDS2 FORMULA EYE VIT 1 EACH PO SCH ×2 (08:04→20:18)
[2018-08-26] MEDS: LIDOCAINE 4%/MENTHOL 1% PATCH TD SCH (08:50)
[2018-08-26] MEDS ORDERED: AMIODARONE HCL 200 MG TAB PO SCH (09:00)
--- NOTE | 2018-08-26 09:00 | PDMN ---
Medical Necessity Medical necessity: Change to IP, as of 08/25/18, per LPN PER DIEM & MCG M-545; los >2 mn for ongoing management of L 4-10 rib fxs w/acute hypoxic respiratory failure s/ p ski accident; requiring further monitoring & rib protocol; comorbid advanced age, VHD, CAD, CKD
[2018-08-26] MEDS: ALBUTEROL 60 PUFFS/8 GM MDI IH PRN ×2 (09:26→18:15)
--- NOTE | 2018-08-26 10:03 | ASMTCMCOM ---
CM Note CM Note Notes: Pt is a 83 y/o man admitted for multiple rib fractures, hx of aflutter, afib on coumadin and hypoxia. Pt fell onto his ski poles on his left side. Therapies have been ordered and awaiting recommendations. Needs are TBD at this time. CM to follow. Plan: TBD Date Signed: 08/26/2018 10:03 AM Electronically Signed By:PATSY Brown
[2018-08-26] MEDS ORDERED: PHYTONADIONE 2.5 MG/2.5 ML ORAL UDL PO ONE (10:09)
[2018-08-26] MEDS ORDERED: HYDROmorphONE/DILAUDID 2 MG TAB PO PRN (10:38)
[2018-08-26] MEDS ORDERED: KETOROLAC 15 MG/1 ML SDV IVP ONE (10:41)
[2018-08-26] MEDS ORDERED: CYCLOBENZAPRINE 10 MG TAB PO PRN (10:43)
--- NOTE | 2018-08-26 10:51 | TRAUMAPNT ---
Trauma Tertiary Progress Note New Findings: No new findings, c/o increased chest pain after IS yesterday. Assessment/Plan: 08/26/2018 Post Accident Day#3 Post admit day#1 Assessment: C/o of chest wall discomfort after chest wall exercise yesterday. CXR today shows increased atelectasis. INR increased Still has bronchitis Plan: Suggest hold on CHRIS (due to need for sedation) for a few days for pulmonary stabilization. Medications changed for improved pain control Subjective: my chest wall pain is increased since yesterday Objective: Vital Signs Temp Pulse Resp BP Pulse Ox 36.6 C 83 20 118/71 95 08/26/18 07:47 08/26/18 07:47 08/26/18 07:47 08/26/18 07:47 08/26/18 07:47 Laboratory Results 08/26/18 04:30 08/26/18 04:30 PT 46.9 SEC (12.0-15.0) H 08/26/18 04:30 INR 5.48 (0.83-1.16) H* 08/26/18 04:30 Physical Exam - Physical Exam General Appearance: WD/WN, alert, mild distress Neck: non-tender, full range of motion Respiratory: lungs clear (slightly decreased excursion) Cardiac/Chest: regular rate, rhythm Abdomen: normal bowel sounds, non-tender, soft Male Genitalia: deferred Rectal: deferred Back: Normal inspection Skin: normal color, warm/dry Extremities: normal range of motion, non-tender, normal inspection Neuro/Psych: no motor/sensory deficits, alert, normal mood/affect, oriented x 3 (25)
--- NOTE | 2018-08-26 11:58 | HOSPPROG ---
Hospitalist Progress Note Assessment/Plan: 83 yo M with PMH that includes VHD, CAD and pulmonary htn presenting s/p skiing accident 3 days ago with multiple rib fractures and worsening issues with sob and acute hypoxic respiratory failure. First encounter, chart reviewed. D/W Dr Goel. # acute hypoxic respiratory failure: -o2 sats mid to high 80s on room air - CXR left sided 4-10 mildly displaced rib fx - Improved on supplemental o2 - appreciate surgery input. - IS, ambulation, OOB to chair, pain management for now -resp therapy consult # multiple rib fractures: -as above, rib protocol #Supratherapeutic INR -5mg Vit k -recheck in am -hold coumadin # VHD: -patient with prosthetic MV with marked thickening and mild regurg and bioprosthetic TV iwth moderate-marked thickening and severe prosthetic regurg, -question of endocarditis on TTE with recommendation for CHRIS. -Cardiology to consult to determine if CHRIS indicated currently. -would consider waiting few days given current rib fx # CAD: -nothing currently to suggest ACS -monitor on telemetry. -Hx of CABG and stent, cardiology consulted as above. # LLE edema: -this is chronic -no associated pain # ckd: -creatinine at baseline # anemia: -slightly lower than recent baseline, no e/o acute bleeding, monitoring # IP status Subjective: Feeling ok. Still having pain. Increased cough. Objective: Vital Signs Temp Pulse Resp BP Pulse Ox 36.8 C 82 18 99/57 L 92 08/26/18 11:47 08/26/18 11:47 08/26/18 11:47 08/26/18 11:47 08/26/18 11:47 Laboratory Results 08/26/18 04:30 08/26/18 04:30 PT 46.9 SEC (12.0-15.0) H 08/26/18 04:30 INR 5.48 (0.83-1.16) H* 08/26/18 04:30 - Physical Exam Constitutional: appears nourished, uncomfortable, No obese Eyes: PERRL, anicteric sclera, EOMI Ears, Nose, Mouth, Throat: moist mucous membranes, hearing normal, ears appear normal Cardiovascular: edema, No JVD, No tachycardia Respiratory: no respiratory distress, reduced air movement, expiratory wheeze Gastrointestinal: normoactive bowel sounds, No tenderness, No ascites Skin: warm, normal color, No mottled Musculoskeletal: no joint effusions, pain with ROM, generalized weakness Neurologic: AAOx3 Psychiatric: interacting appropriately, not anxious, not encephalopathic, thought process linear ICD10 Worksheet Patient Problems: Problems Problem Status Onset Multiple fractures of ribs, left side, initial encounter for closed fracture Acute Anticoagulated on Coumadin Acute
[2018-08-26] MEDS: ACETAMINOPHEN 500 MG TAB PO SCH ×2 (12:21→21:25)
--- NOTE | 2018-08-26 16:09 | PDCARPN ---
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 He reported feeling fatigued and fell skiing onto his left side. He denies other chest pain, SOB, lightheadedness and dizziness both prior to his fall and since his fall. He admits to chronic LE edema that is relieved with elevation and compression socks. He reports good exercise tolerance and that he has skied multiple times this winter. In his room today, the patient voiced that he is feeling much better today in comparison to yesterday. Echocardiography with normal LVEF, mild MR (through the bioprosthetic valve), and severe TR (through annuloplasty). Concerns about vegetation on the mitral valve were voiced, but this does not fit with the patient's signs and symptoms (and is likely post surgical). Plan: (1) Would have pacer interrogation today - this was the side that was affected with the fall, and multiple ribs were fractured on same side. The patient has CHB with pacer, we would like to ensure that the pacer is functioning appropriately (2) Continue therapy on lopressor for history of HTN (3) Amiodarone to continue with history of atrial fibrillation (4) Resumption of coumadin is recommended given elevated [id number] score, but recent INR assessment was noted to be supratherapeutic (5) Statins should continue with annual assessment of LFT and LFTs (6) Lasix therapy should continue Subjective: No cardiovascular complaints have been voiced Reviewed/Discussed With: family, hospitalist Objective: Vital Signs (8 Hrs) Temp Pulse Resp BP Pulse Ox 08/26/18 15:33 36.7 C 80 16 100/59 L 92 08/26/18 12:43 80 20 92 08/26/18 11:47 36.8 C 82 18 99/57 L 92 08/26/18 09:25 84 18 94 Intake/Output (24 Hrs) 08/25/18 08/26/18 08/27/18 05:59 05:59 05:59 Other: Number of Voids Toilet 2 Result Diagrams: 08/26/18 04:30 08/26/18 04:30 EKG: AV sequential pacing Telemetry: AV sequential pacing Echocardiogram: See above - Physical Exam Constitutional: WDWN, healthy appearing, no apparent distress Eyes: PERRL, EOMI Ears, Nose, Mouth, Throat: moist mucous membranes Cardiovascular: regular rate and rhythm, systolic murmur, pulses symmetric bilat , No jugular vein distention Peripheral Pulses: 2+: dorsalis-pedis (R), dorsalis-pedis (L) Respiratory: clear to auscultate bilat, no crackles, no wheezes Gastrointestinal: normoactive bowel sounds Skin: no rashes, no edema Musculoskeletal: no joint effusions, muscular tenderness Neurologic: AAOx3, CN II-XII grossly intact Psychiatric: cooperative, interactive, following commands ICD10 Worksheet Patient Problems: Problems Problem Status Onset Anticoagulated on Coumadin Acute Multiple fractures of ribs, left side, initial encounter for closed fracture Acute
[2018-08-26] MEDS: ATORVASTATIN CALCIUM 10 MG TAB PO SCH (20:19)
[2018-08-26] MEDS: PATCH REMOVAL 1 EA PATCH TD SCH (20:19)
[2018-08-27 05:16] LABS: PLATELET COUNT 119 10^3/uL (150-400)
[2018-08-27] MEDS: ACETAMINOPHEN 500 MG TAB PO SCH ×3 (05:40→21:33)
[2018-08-27 05:56] LABS: INR 2.38 (0.83-1.16); PROTIME(PATIENT) 24.8 SEC (12.0-15.0)
[2018-08-27] MEDS: PANTOPRAZOLE SODIUM 40 MG TAB PO SCH (08:41)
[2018-08-27] MEDS: METOPROLOL TARTRATE 25 MG TAB PO SCH ×2 (08:41→21:33)
[2018-08-27] MEDS: FUROSEMIDE 40 MG TAB PO SCH ×2 (08:41→14:45)
[2018-08-27] MEDS: MULTIVITAMINS 1 EACH TAB PO SCH (08:41)
[2018-08-27] MEDS: CALCIUM CARB W/VIT D 500 MG TAB PO SCH (08:41)
[2018-08-27] MEDS: PRESERVISION AREDS2 FORMULA EYE VIT 1 EACH PO SCH ×2 (08:42→21:33)
[2018-08-27] MEDS: AMIODARONE HCL 200 MG TAB PO SCH ×2 (08:42→21:34)
[2018-08-27] MEDS: SENNOSIDES/DOCUSATE SODIUM TAB PO SCH ×2 (08:42→22:10)
[2018-08-27] MEDS: TAMSULOSIN HCL 0.4 MG CAP PO SCH (08:42)
[2018-08-27] MEDS: LIDOCAINE 4%/MENTHOL 1% PATCH TD SCH (08:43)
--- NOTE | 2018-08-27 10:32 | HOSPPROG ---
Hospitalist Progress Note Assessment/Plan: 83 yo M with PMH that includes VHD, CAD and pulmonary htn presenting s/p skiing accident 3 days ago with multiple rib fractures and worsening issues with sob and acute hypoxic respiratory failure. First encounter, chart reviewed. . # acute hypoxic respiratory failure: -o2 sats mid to high 80s on room air - CXR left sided 4-10 mildly displaced rib fx - Improved on supplemental o2 - appreciate surgery input. - IS, ambulation, OOB to chair, pain management for now # multiple rib fractures: -pacer interrogated due to the location of rib fx (this is fine) -patient needs aggressive pulmonary rehab, high risk for pna #Supratherapeutic INR -5mg Vit k -INR 2.38 -hold Coumadin until trauma wants to resume *mild hyponatremia #Valvular hear disease -patient with prosthetic MV (needs coumadin restarted when ok w trauma) -reviewed his care w Dr Wilson, he does not think a CHRIS is indicated -pacer was interrogated -sensing and pacing appropriately # CAD: -nothing currently to suggest ACS -monitor on telemetry. -Hx of CABG and stent # LLE edema: -this is chronic -no associated pain # ckd: -creatinine at baseline # anemia: -slightly lower than recent baseline, no e/o acute bleeding, monitoring *plan: repeat chest x ray, resume Coumadin when ok w Trauma. Patient is very anxious for discharge, but needs to be monitored a bit longer. Subjective: Stephen wants to go home. Objective: Vital Signs Temp Pulse Resp BP Pulse Ox 36.4 C 81 16 129/71 H 91 L 08/27/18 08:28 08/27/18 08:28 08/27/18 08:28 08/27/18 08:28 08/27/18 08:28 Laboratory Results 08/27/18 04:57 08/27/18 04:57 08/26/18 08/27/18 08/28/18 05:59 05:59 05:59 Intake Total 500 Balance 500 PT 24.8 SEC (12.0-15.0) H 08/27/18 04:57 INR 2.38 (0.83-1.16) H 08/27/18 04:57 - Physical Exam Constitutional: appears nourished, uncomfortable Eyes: PERRL Ears, Nose, Mouth, Throat: hearing normal Cardiovascular: regular rate and rhythym, systolic murmur Respiratory: rhonchi (left base, very diminished, poor inspiratory and expiratory) Gastrointestinal: normoactive bowel sounds Skin: warm Musculoskeletal: generalized weakness Neurologic: AAOx3 Psychiatric: interacting appropriately ICD10 Worksheet Patient Problems: Problems Problem Status Onset Anticoagulated on Coumadin Acute Multiple fractures of ribs, left side, initial encounter for closed fracture Acute
--- NOTE | 2018-08-27 10:47 | ASMTCMCOM ---
CM Note CM Note Notes: Pts case discussed w/ Maura Hidalgo NP. Therapies have cleared pt to d/c without any needs. Surgery is primary and hospitalist is secondary. Pt will most likely be independent. CM available for changes. Plan: Independent Date Signed: 08/27/2018 10:46 AM Electronically Signed By:PATSY Brown
[2018-08-27] MEDS: ATORVASTATIN CALCIUM 10 MG TAB PO SCH (22:09)
[2018-08-27] MEDS: PATCH REMOVAL 1 EA PATCH TD SCH (22:10)
[2018-08-28] MEDS: ACETAMINOPHEN 500 MG TAB PO SCH ×3 (05:09→21:43)
[2018-08-28 05:24] LABS: PLATELET COUNT 146 10^3/uL (150-400)
[2018-08-28 05:35] LABS: INR 1.69 (0.83-1.16); PROTIME(PATIENT) 19.1 SEC (12.0-15.0)
[2018-08-28] MEDS: LIDOCAINE 4%/MENTHOL 1% PATCH TD SCH (09:25)
[2018-08-28] MEDS: PRESERVISION AREDS2 FORMULA EYE VIT 1 EACH PO SCH ×2 (09:26→21:43)
[2018-08-28] MEDS: PANTOPRAZOLE SODIUM 40 MG TAB PO SCH (09:26)
[2018-08-28] MEDS: MULTIVITAMINS 1 EACH TAB PO SCH (09:26)
[2018-08-28] MEDS: ASPIRIN EC 81 MG TAB PO SCH (09:27)
[2018-08-28] MEDS: FUROSEMIDE 40 MG TAB PO SCH ×2 (09:27→14:07)
[2018-08-28] MEDS: TAMSULOSIN HCL 0.4 MG CAP PO SCH (09:27)
[2018-08-28] MEDS: CALCIUM CARB W/VIT D 500 MG TAB PO SCH (09:27)
[2018-08-28] MEDS: AMIODARONE HCL 200 MG TAB PO SCH ×2 (09:27→21:43)
[2018-08-28] MEDS: METOPROLOL TARTRATE 25 MG TAB PO SCH ×2 (10:11→21:43)
[2018-08-28] MEDS: SENNOSIDES/DOCUSATE SODIUM TAB PO SCH ×2 (10:11→21:46)
--- NOTE | 2018-08-28 14:32 | HOSPPROG ---
Hospitalist Progress Note Assessment/Plan: 83 yo M with PMH that includes VHD, CAD and pulmonary htn presenting s/p skiing accident 3 days ago with multiple rib fractures and worsening issues with sob and acute hypoxic respiratory failure. Reviewed his care w Dr Goel and Dr Wilson. 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 -Hx of CABG and stent # LLE edema: -this is chronic -no associated pain # ckd -creatinine at baseline # anemia -slightly lower than recent baseline, no e/o acute bleeding, monitoring *plan: Will get a CHRIS, patient had been ill prior to his admission, now w low grade fever, will get blood cx now. He looks ill today. Spoke w Cardiology, a CHRIS will be done in the morning, will make him NPO after midnight, concerned about his mitral valve, ? endocarditis. Repeat labs in a.m., he has requested a sleeping pill for tonight; this will be ordered. Subjective: Stephen wants to go home. No complaints. Objective: Vital Signs Temp Pulse Resp BP Pulse Ox 36.8 C 80 23 H 125/76 H 90 L 08/28/18 11:45 08/28/18 11:45 08/28/18 11:45 08/28/18 11:45 08/28/18 11:45 Laboratory Results 08/28/18 04:42 08/28/18 04:42 08/27/18 08/28/18 08/29/18 05:59 05:59 05:59 Intake Total 500 500 Balance 500 500 PT 19.1 SEC (12.0-15.0) H 08/28/18 04:42 INR 1.69 (0.83-1.16) H 08/28/18 04:42 - Physical Exam Constitutional: chronically ill appearing, uncomfortable Eyes: PERRL Ears, Nose, Mouth, Throat: hearing normal Cardiovascular: regular rate and rhythym, systolic murmur Respiratory: reduced air movement (left base), rhonchi (scattered throughout), No no respiratory distress (increase work of breathing when lying flat) Gastrointestinal: normoactive bowel sounds Skin: warm Musculoskeletal: generalized weakness Neurologic: AAOx3 Psychiatric: interacting appropriately ICD10 Worksheet Patient Problems: Problems Problem Status Onset Anticoagulated on Coumadin Acute Multiple fractures of ribs, left side, initial encounter for closed fracture Acute
--- NOTE | 2018-08-28 15:16 | PDCONSULT ---
Kitchen Clerk Note: Assessment: Stable from a rib fracture standpoint. Requiring more oxygen, Wheezing on exam, Multiple murmurs but no distinct gallop , CXR consistent with CHF. Hospitalist group addressing. Plan: As there is nothing further for Trauma to add, I will sign off at this point.
[2018-08-28] MEDS ORDERED: FUROSEMIDE 20 MG/2 ML VIAL IVP ONE (15:19)
[2018-08-28] MEDS ORDERED: NS 1,000 ML IV ONE (15:20)
--- NOTE | 2018-08-28 16:30 | PDCARPN ---
Cardiology Progress Note Chief Complaint: Feeling worse today. Low grade temperature Assessment/Plan: Assessment: 08-28-18 Over the past day, the patient has noted more productive cough. Pacer interrogation with normal device function noted. Rib pains are minimal at present. Low grade fever has been noted. Review of the echo (with mention of "possible endocarditis") and review of old echo (from Fall 2018), there are similar changes to the mitral valve pathology (there is a great deal of annular calcification noted). No change to the LVEF has been noted. No WBC elevation was noted when the patient was seen on the . Concerns about the patient's long standing valve pathology, possible changes to the morphology (difficult to call with a surface echo), and the fevers now appreciated. No chest pains or pressure. As mentioned above, productive coughing has been noted. with call to Dr. Sahil Malin of [facility] given long standing relationship. I spoke with patient, , and Dr. Malin about the concerns on the mitral valve. 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 He reported feeling fatigued and fell skiing onto his left side. He denies other chest pain, SOB, lightheadedness and dizziness both prior to his fall and since his fall. He admits to chronic LE edema that is relieved with elevation and compression socks. He reports good exercise tolerance and that he has skied multiple times this winter. In his room today, the patient voiced that he is feeling much better today in comparison to yesterday. Echocardiography with normal LVEF, mild MR (through the bioprosthetic valve), and severe TR (through annuloplasty). Concerns about vegetation on the mitral valve were voiced, but this does not fit with the patient's signs and symptoms (and is likely post surgical). Plan: (1) CHRIS in the morning to assess the morphology of the mitral valve better, more clearly (hopefully) (2) Blood cultures have been drawn (3) Repeat CBC with differentia (4) Coumadin and ASA therapy to continue (5) Would dose patient with IV lasix now (given concerns about CHF symptoms being noted) (6) Amiodarone to continue for rate/rhythm control assistance (7) Statins to continue Further recommendations tomorrow post CHRIS (and as microbiology information evolves) Subjective: Patient feeling more dyspnic today. Productive cough also "new" Reviewed/Discussed With: family, hospitalist Objective: Vital Signs (8 Hrs) Temp Pulse Resp BP Pulse Ox 08/28/18 15:16 37.4 C 08/28/18 11:45 36.8 C 80 23 H 125/76 H 90 L 08/28/18 10:11 81 95/69 L Intake/Output (24 Hrs) 08/27/18 08/28/18 08/29/18 05:59 05:59 05:59 Intake Total 500 500 Balance 500 500 Intake: Oral (ml) 500 500 Other: Number of Voids Toilet 2 3 Number of Stools Toilet 1 Result Diagrams: 08/28/18 04:42 08/28/18 04:42 Telemetry: AV pacing Echocardiogram: Heavily calcified mitral valve - not grossly more pathologic that that which was noted in the fall of 2017. - Physical Exam Constitutional: WDWN, other (more work to breathing today) Eyes: PERRL, EOMI Ears, Nose, Mouth, Throat: moist mucous membranes Cardiovascular: regular rate and rhythm, systolic murmur, pulses symmetric bilat , No diastolic murmur Peripheral Pulses: 2+: dorsalis-pedis (R), dorsalis-pedis (L) Respiratory: expiratory wheeze, inspiratory crackles, bronchial breath sounds Gastrointestinal: normoactive bowel sounds Skin: no edema Musculoskeletal: no muscular tenderness Neurologic: AAOx3, CN II-XII grossly intact Psychiatric: cooperative, interactive, following commands ICD10 Worksheet Patient Problems: Problems Problem Status Onset Anticoagulated on Coumadin Acute Multiple fractures of ribs, left side, initial encounter for closed fracture Acute
[2018-08-28] MEDS ORDERED: TEMAZEPAM 15 MG CAP PO PRN (16:46)
[2018-08-28] MEDS: IPRATROPIUM/ALBUTEROL 3 ML DEYVIAL IH SCH ×2 (17:45→21:26)
[2018-08-28] MEDS ORDERED: WARFARIN SODIUM 2 MG TAB PO SCH (21:00)
[2018-08-28] MEDS: ATORVASTATIN CALCIUM 10 MG TAB PO SCH (21:43)
[2018-08-28] MEDS: MELATONIN 3 MG TAB PO SCH (21:43)
[2018-08-28] MEDS: PATCH REMOVAL 1 EA PATCH TD SCH (21:46)
[2018-08-29] MEDS: ACETAMINOPHEN 500 MG TAB PO SCH ×3 (05:20→21:50)
[2018-08-29 05:27] LABS: INR 1.59 (0.83-1.16); PROTIME(PATIENT) 18.2 SEC (12.0-15.0)
[2018-08-29] MEDS: IPRATROPIUM/ALBUTEROL 3 ML DEYVIAL IH SCH ×4 (05:55→20:57)
--- NOTE | 2018-08-29 08:54 | PDCARPN ---
Cardiology Progress Note Chief Complaint: No complaints this morning Assessment/Plan: Assessment: 08-29-18 Patient doing fair today. No cardiovascular complaints were voiced today. Patient without further complaints of "fever" overnight. Cough is still noted, but according to the patient is not productive. was at bedside this morning. No chest pains or pressure. 08-28-18 Over the past day, the patient has noted more productive cough. Pacer interrogation with normal device function noted. Rib pains are minimal at present. Low grade fever has been noted. Review of the echo (with mention of "possible endocarditis") and review of old echo (from Fall 2017), there are similar changes to the mitral valve pathology (there is a great deal of annular calcification noted). No change to the LVEF has been noted. No WBC elevation was noted when the patient was seen on the . Concerns about the patient's long standing valve pathology, possible changes to the morphology (difficult to call with a surface echo), and the fevers now appreciated. No chest pains or pressure. As mentioned above, productive coughing has been noted. with call to Dr. Sahil Malin of [facility] given long standing relationship. I spoke with patient, , and Dr. Malin about the concerns on the mitral valve. 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 He reported feeling fatigued and fell skiing onto his left side. He denies other chest pain, SOB, lightheadedness and dizziness both prior to his fall and since his fall. He admits to chronic LE edema that is relieved with elevation and compression socks. He reports good exercise tolerance and that he has skied multiple times this winter. In his room today, the patient voiced that he is feeling much better today in comparison to yesterday. Echocardiography with normal LVEF, mild MR (through the bioprosthetic valve), and severe TR (through annuloplasty). Concerns about vegetation on the mitral valve were voiced, but this does not fit with the patient's signs and symptoms (and is likely post surgical). Plan: (1) CHRIS this morning - further recommendations to follow after testing (2) Blood cultures pending (3) Continue therapy on coumadin and ASA (4) Amiodarone to continue for rate/rhythm control (5) Statins should continue with annual assessment of cholesterol and LFTs (6) Dr. Sahil Malin is in house and may step in during the procedure Subjective: No cardiovascular complaints Reviewed/Discussed With: family Objective: Vital Signs (8 Hrs) Temp Pulse Resp BP Pulse Ox 08/29/18 07:30 36.3 C 81 16 112/56 L 90 L 08/29/18 04:00 36.4 C 80 18 124/67 H 95 Intake/Output (24 Hrs) 08/28/18 08/29/18 08/30/18 05:59 05:59 05:59 Intake Total 500 Balance 500 Intake: Oral (ml) 500 Other: Number of Voids Toilet 3 Number of Stools Toilet 1 Result Diagrams: 08/28/18 04:42 08/28/18 04:42 Telemetry: AV pacing - Physical Exam Constitutional: WDWN, no apparent distress Eyes: PERRL, EOMI Ears, Nose, Mouth, Throat: moist mucous membranes Cardiovascular: regular rate and rhythm, systolic murmur, diastolic murmur, pulses symmetric bilat, No jugular vein distention Peripheral Pulses: 2+: dorsalis-pedis (R), dorsalis-pedis (L) Respiratory: clear to auscultate bilat, no crackles, no wheezes Gastrointestinal: normoactive bowel sounds Skin: no rashes, no edema Musculoskeletal: no muscular tenderness Neurologic: AAOx3, CN II-XII grossly intact Psychiatric: cooperative, interactive, following commands ICD10 Worksheet Patient Problems: Problems Problem Status Onset Anticoagulated on Coumadin Acute Multiple fractures of ribs, left side, initial encounter for closed fracture Acute
--- NOTE | 2018-08-29 08:55 | PDANEPAE ---
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 Pacemaker Last Checked: 01/14/12 ANE Patient History - Allergies Allergies/Adverse Reactions: [place] And Derivatives [citrus] Allergy (Verified 08/28/18 13:42) Other-Enter Comments peanut Allergy (Verified 08/28/18 13:42) Other-Enter Comments tomato Allergy (Verified 08/28/18 13:42) Other-Enter Comments - Home Medications Home medications: home medication list seen and reviewed Home Medications: Amiodarone HCl 200 mg PO BID 07/30/18 [Last Taken 08/25/18] Aspirin EC [Aspirin EC 81 mg (*)] 81 mg PO DAILY 07/30/18 [Last Taken 08/25/18] Calcium Carbonate/Vitamin D3 [CALCIUM 600 + VIT D TABLET] 1 cap PO DAILY [Last Taken 08/25/18] Furosemide [Lasix 40 MG (*)] 40 mg PO BID 07/30/18 [Last Taken 08/25/18] Omeprazole 20 mg PO DAILY 07/30/18 [Last Taken 08/25/18] Vit C/Vit E AC/Lut/Copper/Zinc [Preservision Lutein Softgel] 1 cap PO BID [Last Taken 08/25/18] Warfarin Sodium [Coumadin 2MG (*)] 2 mg PO HS 07/30/18 [Last Taken 08/24/18] Albuterol [Proventil Inhaler HFA (*)] 1 - 2 puffs IH Q4H PRN 08/25/18 [Last Taken Unknown] HYDROcodone/APAP 10/325 [[place] 10/325 (*)] 0.5 - 1 tab PO Q6HRS PRN 08/25/18 [ Last Taken 08/25/18 1 tab] Metoprolol Tartrate [Lopressor 25 mg (*)] 12.5 mg PO BID 08/25/18 [Last Taken ] Multivitamins [Multivitamin (*)] 1 each PO DAILY 08/25/18 [Last Taken 08/25/18] Simvastatin [Zocor] 20 mg PO HS 08/25/18 [Last Taken 08/24/18] Tamsulosin HCl [Flomax 0.4 MG (*)] 0.4 mg PO DAILY 08/25/18 [Last Taken 08/25/18 ] - NPO status NPO Since - Liquids (Date): 08/29/18 NPO Since - Liquids (Time): 00:00 NPO Since - Solids (Date): 08/29/18 NPO Since - Solids (Time): 00:00 - Smoking Hx Smoking Status: Never smoked - Alcohol Use Alcohol Use: Rarely ANE Labs/Vital Signs - Labs Result Diagrams: 08/28/18 04:42 08/28/18 04:42 - Vital Signs Blood Pressure: 112/56 Heart Rate: 81 Respiratory Rate: 16 O2 Sat (%): 90 Height: 172.72 cm Weight: 68.6 kg ANE Physical Exam - Airway Neck exam: FROM Mallampati Score: Class 2 Mouth exam: normal dental/mouth exam - Pulmonary Pulmonary: no respiratory distress - Cardiovascular Cardiovascular: regular rate and rhythym - ASA Status ASA Status: III ANE Anesthesia Plan Anesthesia Plan: GA with mask Total IV Anesthesia: Yes
[2018-08-29] MEDS ORDERED: LIDOCAINE 2% 100 MG/5 ML SYR ONE (08:56)
[2018-08-29] MEDS ORDERED: PROPOFOL 200 MG/20 ML VIAL ONE (08:56)
--- NOTE | 2018-08-29 09:21 | PDCARTEE ---
CAR CHRIS CAR CHRIS: After consents for sedation and CHRIS were obtained, and "time-out" performed, the patient was gently placed on the left side (with care given the multiple rib fractures). CHRIS probe was place without difficulty and standard views were obtained. Preliminary report: (1) Left ventricular systolic ejection fraction was normal (2) RV dilation (moderate) - pacer lead was noted to the RV (3) Moderate YOMI with mild LAE - bilateral "smoke" was noted consistent with slow flow - JUSTO appears to be oversewn (4) Heavily calcified mitral valve (bioprosthetic in place) without regurgitation noted. No stenosis appreciated. No vegetations were noted (5) Trileaflet aortic valve with mild sclerosis, no stenosis, and no appreciable insufficiency (6) Severe TR with pacer lead present (7) Physiologic PI was noted (8) Moderate/large left sided pleural effusion (9) Mild atheroma to the descending aorta Formal report is pending Summary: No mitral valve vegetation was noted
[2018-08-29] MEDS ORDERED: ALBUTEROL 3 ML DEYVIAL ONE (09:33)
[2018-08-29] MEDS ORDERED: ONDANSETRON 4 MG/2 ML VIAL IVP PRN (09:33)
[2018-08-29] MEDS ORDERED: NALOXONE HCL 0.4 MG/ML INJ IVP PRN (09:33)
[2018-08-29] MEDS ORDERED: MEPERIDINE 25 MG/0.5 ML AMP IVP PRN (09:33)
[2018-08-29] MEDS ORDERED: fentaNYL 100 MCG/2 ML INJ IVP PRN (09:33)
[2018-08-29] MEDS ORDERED: LABETALOL HCL 5 MG/ML 20 ML MDV IVP PRN (09:33)
[2018-08-29] MEDS ORDERED: ALBUTEROL 3 ML DEYVIAL IH PRN (09:33)
--- NOTE | 2018-08-29 10:47 | CPEKG ---
Test Reason : OPEN Blood Pressure : / mmHG Vent. Rate : 081 BPM Atrial Rate : 081 BPM P-R Int : 132 ms QRS Dur : 175 ms QT Int : 448 ms P-R-T Axes : -16 -29 151 degrees QTc Int : 520 ms Atrial-ventricular dual-paced rhythm Confirmed by Rasheed Brown ([id number]) on 08/29/2018 10:47:24 AM Referred By: Valencia Brambila Confirmed By:Rasheed Brown
[2018-08-29] MEDS ORDERED: FUROSEMIDE 20 MG/2 ML VIAL IVP ONE (10:48)
[2018-08-29] MEDS: CALCIUM CARB W/VIT D 500 MG TAB PO SCH (10:59)
[2018-08-29] MEDS: MULTIVITAMINS 1 EACH TAB PO SCH (11:02)
[2018-08-29] MEDS: PRESERVISION AREDS2 FORMULA EYE VIT 1 EACH PO SCH ×2 (11:02→21:50)
[2018-08-29] MEDS: TAMSULOSIN HCL 0.4 MG CAP PO SCH (11:03)
[2018-08-29] MEDS: SENNOSIDES/DOCUSATE SODIUM TAB PO SCH ×2 (11:03→21:38)
[2018-08-29] MEDS: AMIODARONE HCL 200 MG TAB PO SCH ×2 (11:04→21:50)
[2018-08-29] MEDS: PANTOPRAZOLE SODIUM 40 MG TAB PO SCH (11:04)
[2018-08-29] MEDS: ASPIRIN EC 81 MG TAB PO SCH (11:04)
[2018-08-29] MEDS: METOPROLOL TARTRATE 25 MG TAB PO SCH ×2 (11:04→21:51)
[2018-08-29] MEDS: LIDOCAINE 4%/MENTHOL 1% PATCH TD SCH (11:05)
[2018-08-29] MEDS: FUROSEMIDE 40 MG TAB PO SCH ×2 (11:06→15:39)
--- NOTE | 2018-08-29 11:46 | ECHO ---
[email or web address] [address] [address] Main: [phone] Echocardiography Examination Transesophageal Name: ALVAREZ GALE MR#: [id number] Study Date: 08/29/2018 Study Time: 08:33 AM Date of : 1935 Age: 83 year(s) Height: 172.7 cm (68 in.) Weight: 68.49 kg (151 lb.) BSA: 1.81 m2 Gender: Male Examination: CHRIS Contrast: Image Quality: Adequate Rhythm: Heart Rate: BP: 122 mmHg/86 mmHg Indication: evaluation of mitral valve Procedure Staff Referring Physician: [place] Manager: Rehana Nj HUY Reading Physician: Philip Wilson MD Requesting Provider: Ordering Physician: Maura Hidalgo Indication: evaluation of mitral valve Acute complication: None Conclusions (1) LVEF was normal (2) Bioprosthetic mitral valve without evidence of vegetation - heavy annular calcification was noted (3) Mild AI (4) Severe TR (with annuloplasty ring history) (5) Trivial PI (6) Moderate left sided pleural effusion Findings Left Ventricle: Normal global systolic left ventricular function. Right Ventricle: There is a pacing wire present in the right ventricle. Left Atrium Appendage: The left atrial appendage appears sewn over. Right Atrium: Right atrial enlargement. Mitral Valve: A bioprosthesis is present in the mitral valve. Marked mitral annular calcification. Patient: ALVAREZ GALE Study Date: 08/29/2018 Page 1 of 2 08:33 AM Aortic Valve: Aortic leaflets are structurally normal. Mild aortic regurgitation is present. There is aortic sclerosis present. Tricuspid Valve: A bioprosthesis is present in the tricuspid valve. Severe prosthesis regurgitation. Pulmonic Valve: Pulmonic leaflets are structurally normal. Trivial pulmonic valve regurgitation is present. Aorta: Mild atheroma in the descending aorta. Pericardium: There is a pleural effusion present. 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
--- NOTE | 2018-08-29 13:27 | HOSPPROG ---
Hospitalist Progress Note Assessment/Plan: 83 yo M with PMH that includes VHD, CAD and pulmonary htn presenting s/p skiing accident with multiple rib fractures and worsening issues with sob and acute hypoxic respiratory failure. # acute hypoxic respiratory failure - CXR left sided 4-10 mildly displaced rib fx -Give dose of IV Lasix today, recheck CXR in a.m. 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 CHRIS done today and no vegetations -pacer was interrogated -sensing and pacing appropriately # CAD -nothing currently to suggest ACS -monitor on telemetry. -Hx of CABG and stent # LLE edema: -this is chronic -no associated pain # ckd -creatinine at baseline # anemia -slightly lower than recent baseline, no e/o acute bleeding, monitoring *cont inpatient care Subjective: some sob. seen after CHRIS. seems comfortable Objective: Vital Signs Temp Pulse Resp BP Pulse Ox 36.7 C 83 23 H 126/67 H 93 08/29/18 12:59 08/29/18 12:59 08/29/18 12:59 08/29/18 12:59 08/29/18 12:59 Laboratory Results 08/28/18 04:42 08/28/18 04:42 08/28/18 08/29/18 08/30/18 05:59 05:59 05:59 Intake Total 500 Balance 500 PT 18.2 SEC (12.0-15.0) H 08/29/18 05:07 INR 1.59 (0.83-1.16) H 08/29/18 05:07 - Physical Exam Constitutional: no apparent distress Eyes: PERRL Ears, Nose, Mouth, Throat: moist mucous membranes, hearing normal Cardiovascular: regular rate and rhythym, No edema Respiratory: no respiratory distress, reduced air movement, rhonchi Gastrointestinal: normoactive bowel sounds, soft, non-tender abdomen Skin: warm Neurologic: AAOx3 Psychiatric: interacting appropriately, not anxious, not encephalopathic Lymph, Heme, Immunologic: No petechiae ICD10 Worksheet Patient Problems: Problems Problem Status Onset Anticoagulated on Coumadin Acute Multiple fractures of ribs, left side, initial encounter for closed fracture Acute
--- NOTE | 2018-08-29 14:28 | POSTANESTH ---
Post Anesthetic Evaluation Cardiovascular Status: Normal, Stable Respiratory Status: Normal, Stable, Tx Decrease in SpO2 Level of Consciousness/Mental Status: Can Participate in Eval Pain Control: Adequate, Prn Tx Ordered Nausea/Vomiting Control: Adequate, Prn Tx Ordered Complications Possibly Related to Anesthesia: None Noted
[2018-08-29] MEDS ORDERED: WARFARIN SODIUM 3 MG TAB PO ONE (16:00)
[2018-08-29] MEDS: ATORVASTATIN CALCIUM 10 MG TAB PO SCH (21:47)
[2018-08-29] MEDS: MELATONIN 3 MG TAB PO SCH (21:50)
[2018-08-29] MEDS: PATCH REMOVAL 1 EA PATCH TD SCH (21:52)
[2018-08-30] MEDS: IPRATROPIUM/ALBUTEROL 3 ML DEYVIAL IH SCH ×2 (04:44→11:36)
[2018-08-30 05:43] LABS: PLATELET COUNT 165 10^3/uL (150-400)
[2018-08-30 05:53] LABS: INR 2.12 (0.83-1.16); PROTIME(PATIENT) 22.7 SEC (12.0-15.0)
[2018-08-30] MEDS: ACETAMINOPHEN 500 MG TAB PO SCH (05:53)
[2018-08-30] MEDS: METOPROLOL TARTRATE 25 MG TAB PO SCH (08:38)
[2018-08-30] MEDS: CALCIUM CARB W/VIT D 500 MG TAB PO SCH (08:38)
[2018-08-30] MEDS: FUROSEMIDE 40 MG TAB PO SCH (08:38)
[2018-08-30] MEDS: TAMSULOSIN HCL 0.4 MG CAP PO SCH (08:39)
[2018-08-30] MEDS: MULTIVITAMINS 1 EACH TAB PO SCH (08:39)
[2018-08-30] MEDS: ASPIRIN EC 81 MG TAB PO SCH (08:39)
[2018-08-30] MEDS: AMIODARONE HCL 200 MG TAB PO SCH (08:39)
[2018-08-30] MEDS: LIDOCAINE 4%/MENTHOL 1% PATCH TD SCH (08:39)
[2018-08-30] MEDS: PRESERVISION AREDS2 FORMULA EYE VIT 1 EACH PO SCH (08:39)
[2018-08-30] MEDS: PANTOPRAZOLE SODIUM 40 MG TAB PO SCH (08:39)
[2018-08-30] MEDS: SENNOSIDES/DOCUSATE SODIUM TAB PO SCH (08:42)
--- NOTE | 2018-08-30 10:39 | SOAPPROG ---
AMY Progress Note Assessment/Plan: Assessment: 1 VHD. Patient with known severe tricuspid insufficiency and bioprosthetic mitral valve without apparent vegetations. Continue p. O. Antibiotics and follow up with Dr. Malin in [place] in the next 2-3 weeks. 2. History of atrial fibrillation with pacemaker. Patient on amiodarone and warfarin. continue current meds follow-up with Dr. Malin Plan: 1. Okay to discharge from our standpoint follow-up with Dr. Malin in 2-3 weeks. 08/30/18 10:39 08/30/18 10:39 08/30/18 10:42 Subjective: Patient feeling well post CHRIS no complications. Reviewed findings with the patient. At this time no further cardiac workup is needed. He can be discharged from a cardiovascular standpoint on p.o. Antibiotics with follow-up with Dr. Malin in the next 2-3 weeks. Objective: Vital Signs Temp Pulse Resp BP Pulse Ox 36.5 C 82 22 H 116/60 92 08/30/18 08:00 08/30/18 08:00 08/30/18 08:00 08/30/18 08:00 08/30/18 08:00 Laboratory Results 08/30/18 04:30 08/30/18 04:30 08/29/18 08/30/18 08/31/18 05:59 05:59 05:59 Intake Total 500 Balance 500 PT 22.7 SEC (12.0-15.0) H 08/30/18 04:30 INR 2.12 (0.83-1.16) H 08/30/18 04:30 Physical Exam - Physical Exam Respiratory: lungs clear Cardiac/Chest: irregularly irregular ICD10 Worksheet Patient Problems: Problems Problem Status Onset Multiple fractures of ribs, left side, initial encounter for closed fracture Acute Anticoagulated on Coumadin Acute
[2018-08-30 11:00] VITALS: BP 109/59
--- NOTE | 2018-08-30 12:30 | PDDCSUM ---
Discharge Summary Discharge Summary: 83 yo M with PMH that includes VHD, CAD and pulmonary htn presenting s/p skiing accident with multiple rib fractures and worsening issues with sob and acute hypoxic respiratory failure. Trauma consulted and signed off. He was noted to have low grade fevers and given his hx of valvular heart disease he had a TTE/ CHRIS which was ultimately negative for e/o endocarditis. He has been fever free. He had issues with pulmonary edema but at this point is much better. He will d/ c with Lasix BID, IS, and f/u with PCP next week. INR was a little elevated initially but now better. He will have the INR checked on Saturday. He is at risk for pneumonia and pt understands. 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 -Hx of CABG and stent # LLE edema: -this is chronic -no associated pain # ckd -creatinine at baseline # anemia -slightly lower than recent baseline, no e/o acute bleeding, monitoring Exam: NAD AAOX3 RRR CTA B MEDS: SEE MED REC TOTAL TIME SPENT ON D/C IS 40 MINS
== END 2018-08-30 13:52 | disposition home or self-care (01) | DRG 183 ==
LOC: F3E 15:18 → OBSVTOIN 18:34
PROVIDERS: ADMIT Internal Medicine; ATTEND Nurse Practitioner
PROC: B245ZZ4 Ultrasonography of Left Heart, Transesophageal (ICD-10-PCS; principal; 2018-08-29)
DX: S22.42XA Multiple fractures of ribs, left side, initial encounter for closed fracture (principal); J96.01 Acute respiratory failure with hypoxia; E87.1 Hypo-osmolality and hyponatremia; V00.328A Other snow-ski accident, initial encounter; Y92.830 Public park as the place of occurrence of the external cause; I25.10 Atherosclerotic heart disease of native coronary artery without angina pectoris; I27.20 Pulmonary hypertension, unspecified; D64.9 Anemia, unspecified; I12.9 Hypertensive chronic kidney disease with stage 1 through stage 4 chronic kidney disease, or unspecified chronic kidney disease; N18.9 Chronic kidney disease, unspecified; Z95.4 Presence of other heart-valve replacement; Z95.1 Presence of aortocoronary bypass graft; Z79.01 Long term (current) use of anticoagulants; Z95.810 Presence of automatic (implantable) cardiac defibrillator
CPT/HCPCS: 97116-GP; 97161-GP; 97165-GO; 97530-GO; 97535-GO; J1885; J1940; J2001; J2704; J7613

== ENCOUNTER 2018-09-03 13:48 | Inpatient (IN) | payer OTHER, MEDICARE ==
--- NOTE | 2018-09-03 13:56 | EDPHY ---
H & P Time Seen by Provider: 09/03/18 13:55 HPI/ROS: CHIEF COMPLAINT: Shortness of breath, and syncope HISTORY OF PRESENT ILLNESS: Patient fell and broke multiple ribs [place] [employer] [place] and was recently discharged from the hospital. He has had worsening increased shortness of breath over the last 2 days, severe today. Sent by his primary care office. He passed out on the way in because he was so lightheaded. Patient sustained facial laceration. He is on anticoagulation with warfarin. Shortness of breath associated with a worsening cough but no fever or chills. Does have some residual left-sided chest pain. REVIEW OF SYSTEMS: Eye: no change in vision ENT: no sore throat Cardiac: no chest pain or syncope Pulmonary: no cough or SOB Abdomen: no vomiting, diarrhea, abdominal pain Musculoskeletal: no back pain Skin: no rash Neuro: no headache Constitutional: no fever : no urinary symptoms A comprehensive 10 point review of systems is otherwise negative aside from elements mentioned in the history of present illness. PAST MEDICAL HISTORY: Discharge summary dated 08/30/2018 personally reviewed includes left 4 through 10 rib fractures, pacemaker, mitral valve prosthesis anticoagulate Social history: Primary care is in [facility] General Appearance: Alert and conversant, cooperative. Eyes: No scleral icterus. Pupils equal reactive extraocular motion intact. ENT, Mouth: Normal mucous membranes. 1 cm right eyebrow laceration. Respiratory: Patient is tachypneic with decreased breath sounds on the left side rhonchi bilaterally. Cardiovascular: Regular rate and rhythm. Gastrointestinal: Abdomen is soft and non tender. Neurological: Alert, face symmetric, normal motor and sensory in extremities. Skin: Extensive left lower chest bruising. Right eyebrow laceration. Musculoskeletal: No midline spinal or extremity tenderness or deformity. Psychiatric: Not agitated. Emergency Department course/MDM: Severely hypoxemic in the 70s on arrival, placed on non-rebreather to get him into the 90s. Cervical spine cleared clinically. CT head for fall and trauma while on warfarin anticoagulation. 1436: CXR reviewed with Jos; new lower segment RUL infiltrate, new RLL density , query infection vs. fluid overload. 1446: Discussed with Rocky for Dr. Beckman. 1500: CT head negative per Pedro for trauma intracranially, medial wall of the right orbit fracture. CT chest ordered for clarification of pulmonary findings on chest x-ray, would be unlikely to have pulmonary embolism with therapeutic INR of 2.7. 1519: BNP noted to be greater than 6000, echo dated 08/29/2018 shows tricuspid regurgitation and normal LV ejection fraction, cardiology consulted. 1535: CT chest shows bilateral pneumonia worse in the right upper lobe, Dr. Vasquez. 1 L IV normal saline and Zosyn 4.5 g given in the emergency department for possible healthcare associated pneumonia. Does not have severe sepsis; INR elevated but because of therapeutic warfarin dosing. Discussed with Joceline Rice for [facility], will consult with question of fluid overload on top of pneumonia, valve disease, BNP >6000. Smoking Status: Never smoked Constitutional: Initial Vital Signs Temperature (C) 36.6 C 09/03/18 14:03 Heart Rate 84 09/03/18 14:03 Respiratory Rate 23 H 09/03/18 14:03 Blood Pressure 132/67 H 09/03/18 14:03 O2 Sat (%) 72 L 09/03/18 14:03 O2 Delivery Mode Non-Rebreather Mask O2 (L/minute) 15 Allergies/Adverse Reactions: [place] And Derivatives [citrus] Allergy (Verified 08/28/18 13:42) Other-Enter Comments peanut Allergy (Verified 08/28/18 13:42) Other-Enter Comments tomato Allergy (Verified 08/28/18 13:42) Other-Enter Comments Home Medications: Medication Instructions Recorded Amiodarone HCl 200 mg PO BID 07/30/18 Aspirin EC [Aspirin EC 81 mg (*)] 81 mg PO DAILY 07/30/18 Calcium Carbonate/Vitamin D3 1 cap PO DAILY 07/30/18 [CALCIUM 600 + VIT D TABLET] Furosemide [Lasix 40 MG (*)] 40 mg PO BID 07/30/18 Omeprazole 20 mg PO DAILY 07/30/18 Vit C/Vit E AC/Lut/Copper/Zinc 1 cap PO BID 07/30/18 [Preservision Lutein Softgel] Warfarin Sodium [Coumadin 2MG (*)] 2 mg PO HS 07/30/18 Albuterol [Proventil Inhaler HFA 1 - 2 puffs IH Q4H PRN 08/25/18 (*)] Metoprolol Tartrate [Lopressor 25 12.5 mg PO BID 08/25/18 mg (*)] Multivitamins [Multivitamin (*)] 1 each PO DAILY 08/25/18 Tamsulosin HCl [Flomax 0.4 MG (*)] 0.4 mg PO DAILY 08/25/18 HYDROmorphone HCL [Dilaudid 2 mg 2 - 4 mg PO Q4HRS PRN #30 tab 08/30/18 (*)] Polyethylene Glycol 3350 [Miralax 17 gm PO DAILY PRN pkt 08/30/18 17 gm (*)] Atorvastatin Calcium [Lipitor 40 40 mg PO DAILY 09/03/18 mg (*)] Medical Decision Making - Diagnostics EKG Interpretation: 12-lead EKG interpreted by me; official reading is in computer system. My interpretation is av dual pacing. Imaging Results: Imaging Impressions Head CT 09/03/18 14:06 Impression: 1. No acute intracranial hemorrhage. 2. Minimally displaced right medial orbital wall fracture. Fredrick Ann was notified these findings by telephone at 3:02 PM on 09/03/2018 Chest X-Ray 09/03/18 14:11 Impression: 1. Increase in patchy bilateral infiltrates right upper lobe and both lung bases. Consider dependent edema/fluid overload versus pneumonia. 2. Small left effusion. Chest CT 09/03/18 14:35 Impression: 1. Findings compatible with multifocal pneumonia greatest in the right upper and right middle lobes. Concomitant superimposed pulmonary edema is a possibility given cardiomegaly and small bilateral pleural effusions Fredrick Ann was notified of these findings by telephone at 3:35 PM on 09/03/2018 Imaging: Discussed imaging studies w/ call manager Radiologist Procedures: Procedure: Laceration repair. Verbal consent was obtained from the patient. The 1 cm laceration on the right eyebrow was anesthetized using 0.5% bupivacaine with epinephrine. The wound was irrigated with standard emergency department protocol, draped and explored. There were no deep structures involved. No foreign body found. The wound was repaired with 6 0 Prolene. The wound repair was simple. Excellent hemostasis was obtained. Wound care instructions were discussed and the patient was warned regarding scarring. The procedure was performed by myself. Differential Diagnosis: Differential diagnosis considered for shortness of breath including but not limited to pulmonary infectious process, COPD, asthma, pulmonary embolus and congestive heart failure. Critical Care Time: Critical care time spent by me, Dr. Ann, exclusively with the care of this patient was 45 minutes, exclusive of PA or BOOKBINDER CHIEF time and exclusive of separate procedures. The organ system at risk was pulmonary and I ordered supplemental oxygen, multiple diagnostics, IV fluids and antibiotics to stabilize the patient and prevent worsening of the patient's condition. - Data Points Laboratory Results: Laboratory Results 09/03/18 14:05 09/03/18 14:05 09/03/18 09/03/18 09/03/18 14:09 14:05 14:05 WBC RBC Hgb POC Hgb 11.9 gm/dL L gm/dL (13.7-17.5) Hct POC Hct 35 % L % (40-51) MCV MCH MCHC RDW Plt Count MPV Neut % (Auto) Lymph % (Auto) [place] % (Auto) Eos % (Auto) Baso % (Auto) Nucleat RBC Rel Count Absolute Neuts (auto) Absolute Lymphs (auto) Absolute Monos (auto) Absolute Eos (auto) Absolute Basos (auto) Absolute Nucleated RBC Immature Gran % Immature Gran # RBC/WBC/PLT Morphology Platelet Estimate PT INR APTT POC Sodium 125 mEq/L L mEq/L (135-145) Sodium 123 mEq/L L mEq/L (135-145) POC Potassium 4.2 mEq/L mEq/L (3.3-5.0) Potassium 4.3 mEq/L mEq/L (3.5-5.2) POC Chloride 84 mEq/L L mEq/L (97-110) Chloride 85 mEq/L L mEq/L (97-110) Carbon Dioxide 27 mEq/l mEq/l (22-31) POC Total CO2 26 mEq/L mEq/L (22-31) Anion Gap 11 mEq/L mEq/L (6-14) POC BUN 29 mg/dL H mg/dL (7-23) BUN 33 mg/dL H mg/dL (7-23) Creatinine 1.2 mg/dL mg/dL (0.7-1.3) POC Creatinine 1.3 mg/dL mg/dL (0.7-1.3) Estimated GFR 58 Glucose 139 mg/dL H mg/dL (70-100) POC Glucose 145 mg/dL H mg/dL (70-100) Calcium 8.4 mg/dL L mg/dL (8.5-10.4) NT-Pro-B Natriuret Pep 6640 pg/mL H pg/mL (0-450) 09/03/18 09/03/18 14:05 14:05 WBC 15.05 10^3/uL H 10^3/uL (3.80-9.50) RBC 3.39 10^6/uL L 10^6/uL (4.40-6.38) Hgb 10.9 g/dL L g/dL (13.7-17.5) POC Hgb Hct 31.7 % L % (40.0-51.0) POC Hct MCV 93.5 fL fL (81.5-99.8) MCH 32.2 pg pg (27.9-34.1) MCHC 34.4 g/dL g/dL (32.4-36.7) RDW 13.2 % % (11.5-15.2) Plt Count 326 10^3/uL 10^3/uL (150-400) MPV 9.3 fL fL (8.7-11.7) Neut % (Auto) 91.3 % H % (39.3-74.2) Lymph % (Auto) 2.4 % L % (15.0-45.0) [place] % (Auto) 5.2 % % (4.5-13.0) Eos % (Auto) 0.1 % L % (0.6-7.6) Baso % (Auto) 0.1 % L % (0.3-1.7) Nucleat RBC Rel Count 0.0 % % (0.0-0.2) Absolute Neuts (auto) 13.74 10^3/uL H 10^3/uL (1.70-6.50) Absolute Lymphs (auto) 0.36 10^3/uL L 10^3/uL (1.00-3.00) Absolute Monos (auto) 0.78 10^3/uL 10^3/uL (0.30-0.80) Absolute Eos (auto) 0.02 10^3/uL L 10^3/uL (0.03-0.40) Absolute Basos (auto) 0.02 10^3/uL 10^3/uL (0.02-0.10) Absolute Nucleated RBC 0.00 10^3/uL 10^3/uL (0-0.01) Immature Gran % 0.9 % % (0.0-1.1) Immature Gran # 0.14 10^3/uL H 10^3/uL (0.00-0.10) RBC/WBC/PLT Morphology TNP Platelet Estimate TNP PT 27.6 SEC H SEC (12.0-15.0) INR 2.74 H (0.83-1.16) APTT 44.1 SEC H SEC (23.0-38.0) POC Sodium Sodium POC Potassium Potassium POC Chloride Chloride Carbon Dioxide POC Total CO2 Anion Gap POC BUN BUN Creatinine POC Creatinine Estimated GFR Glucose POC Glucose Calcium NT-Pro-B Natriuret Pep Medications Given: Discontinued Medications Sodium Chloride (Ns) 1,000 mls @ 0 mls/hr IV EDNOW ONE; Wide Open PRN Reason: Protocol Stop: 09/03/18 14:18 Last Admin: 09/03/18 14:37 Dose: 1,000 mls Piperacillin/Tazobactam/Dextrose (Zosyn (Premix)) 100 mls @ 200 mls/hr IV EDNOW ONE PRN Reason: Protocol Stop: 09/03/18 15:15 Last Admin: 09/03/18 15:17 Dose: 100 mls Point of Care Test Results: Chemistry 09/03/18 14:09 POC Sodium 125 mEq/L L mEq/L (135-145) POC Potassium 4.2 mEq/L mEq/L (3.3-5.0) POC Chloride 84 mEq/L L mEq/L (97-110) POC Total CO2 26 mEq/L mEq/L (22-31) POC BUN 29 mg/dL H mg/dL (7-23) POC Creatinine 1.3 mg/dL mg/dL (0.7-1.3) POC Glucose 145 mg/dL H mg/dL (70-100) ISTAT H&H 09/03/18 14:09 POC Hgb 11.9 gm/dL L gm/dL (13.7-17.5) POC Hct 35 % L % (40-51) Departure - Departure Disposition: [facility] Inpatient Acute Clinical Impression: Hyponatremia, Hypoxia, Anticoagulated on Coumadin, Fracture of right orbital wall, HCAP (healthcare-associated pneumonia) Facial laceration Qualifiers: Encounter type: initial encounter Qualified Code(s): S01.81XA - Laceration without foreign body of other part of head, initial encounter Condition: Serious
[2018-09-03] MEDS ORDERED: NS 1,000 ML IV ONE (14:17)
--- NOTE | 2018-09-03 14:19 | CPEKG ---
Test Reason : OPEN Blood Pressure : / mmHG Vent. Rate : 082 BPM Atrial Rate : 084 BPM P-R Int : 175 ms QRS Dur : 167 ms QT Int : 457 ms P-R-T Axes : -38 -63 099 degrees QTc Int : 534 ms Atrial-ventricular dual-paced rhythm Confirmed by Fredrick Ann ([id number]) on 09/03/2018 2:18:54 PM Referred By: Fredrick Ann Confirmed By:Fredrick Ann
[2018-09-03 14:30] LABS: PLATELET COUNT 326 10^3/uL (150-400)
[2018-09-03 14:31] LABS: INR 2.74 (0.83-1.16); PROTIME(PATIENT) 27.6 SEC (12.0-15.0)
[2018-09-03] MEDS ORDERED: PIPERACILLIN/TAZO 4.5 GM/DEX 100 ML IV ONE (14:46)
[2018-09-03] MEDS ORDERED: ONDANSETRON DISINTEGRATING 4 MG TAB PO PRN (15:01)
[2018-09-03] MEDS ORDERED: ONDANSETRON 4 MG/2 ML VIAL IVP PRN (15:01)
--- NOTE | 2018-09-03 17:44 | PDGENHP ---
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 Patient's , son and [id number] are at bedside who have helped with hx taking. They report that patient was recently discharged from hospital and has been having worsening cough that is non- productive but sounds "wet" with gurgling. Patient reports acute worsening of shortness of breath since yesterday. Daughter in law states she spoke to him on the phone yesterday and he was unable to get out more than 2 words at a time. Patient denies chest pain (other than rib fractures), f/c, d/c, n/v, edema, palpitations. His reports his appetite has been poor for the past few days and he has not been eating much but still drinking fluids. He was seen by his PCP on Saturday for this and was supposed to f/u with them today. reports he was rx a nasal decongestant by PCP but no abx. History Information - Allergies/Home Medication List Allergies/Adverse Reactions: [place] And Derivatives [citrus] Allergy (Verified 08/28/18 13:42) Other-Enter Comments peanut Allergy (Verified 08/28/18 13:42) Other-Enter Comments tomato Allergy (Verified 08/28/18 13:42) Other-Enter Comments Home Medications: Amiodarone HCl 200 mg PO BID 07/30/18 [Last Taken 09/01/18] Aspirin EC [Aspirin EC 81 mg (*)] 81 mg PO DAILY 07/30/18 [Last Taken 09/01/18] Calcium Carbonate/Vitamin D3 [CALCIUM 600 + VIT D TABLET] 1 cap PO DAILY [Last Taken 09/01/18] Furosemide [Lasix 40 MG (*)] 40 mg PO BID 07/30/18 [Last Taken 09/01/18] Omeprazole 20 mg PO DAILY 07/30/18 [Last Taken 09/01/18] Vit C/Vit E AC/Lut/Copper/Zinc [Preservision Lutein Softgel] 1 cap PO BID [Last Taken 09/01/18] Warfarin Sodium [Coumadin 2MG (*)] 2 mg PO HS 07/30/18 [Last Taken 09/01/18] Albuterol [Proventil Inhaler HFA (*)] 1 - 2 puffs IH Q4H PRN 08/25/18 [Last Taken Unknown] Metoprolol Tartrate [Lopressor 25 mg (*)] 12.5 mg PO BID 08/25/18 [Last Taken ] Multivitamins [Multivitamin (*)] 1 each PO DAILY 08/25/18 [Last Taken 09/01/18] Tamsulosin HCl [Flomax 0.4 MG (*)] 0.4 mg PO DAILY 08/25/18 [Last Taken 09/01/18 ] Atorvastatin Calcium [Lipitor 40 mg (*)] 40 mg PO DAILY 09/03/18 [Last Taken ] I have personally reviewed and updated: family history, medical history, social history, surgical history - Past Medical History atrial fibrillation (s/p cardioversion) - Surgical History Reports: coronary bypass surgery, pacemaker/AICD, coronary stent - Family History Positive for: CAD - Social History Smoking Status: Never smoked Additional social history: here with Review of Systems Review of Systems: ROS: 10pt was reviewed & negative except for what was stated in HPI & below Physical Exam Physical Exam: Temp Pulse Resp BP Pulse Ox 36.6 C 80 20 140/82 H 93 09/03/18 14:03 09/03/18 17:11 09/03/18 17:11 09/03/18 16:45 09/03/18 17:11 O2 (L/minute) 15 Constitutional: no apparent distress Eyes: PERRL Ears, Nose, Mouth, Throat: moist mucous membranes Cardiovascular: regular rate and rhythym, systolic murmur, No edema Respiratory: reduced air movement, bronchial breath sounds, rhonchi Gastrointestinal: soft, non-tender abdomen Genitourinary: No [place] in urethra Skin: warm Musculoskeletal: generalized weakness Neurologic: AAOx3 Psychiatric: interacting appropriately Lab Data & Imaging Review 09/03/18 14:05 09/03/18 14:05 WBC 15.05 10^3/uL (3.80-9.50) H 09/03/18 14:05 RBC 3.39 10^6/uL (4.40-6.38) L 09/03/18 14:05 Hgb 10.9 g/dL (13.7-17.5) L 09/03/18 14:05 POC Hgb 11.9 gm/dL (13.7-17.5) L 09/03/18 14:09 Hct 31.7 % (40.0-51.0) L 09/03/18 14:05 POC Hct 35 % (40-51) L 09/03/18 14:09 MCV 93.5 fL (81.5-99.8) 09/03/18 14:05 MCH 32.2 pg (27.9-34.1) 09/03/18 14:05 MCHC 34.4 g/dL (32.4-36.7) 09/03/18 14:05 RDW 13.2 % (11.5-15.2) 09/03/18 14:05 Plt Count 326 10^3/uL (150-400) 09/03/18 14:05 MPV 9.3 fL (8.7-11.7) 09/03/18 14:05 Neut % (Auto) 91.3 % (39.3-74.2) H 09/03/18 14:05 Lymph % (Auto) 2.4 % (15.0-45.0) L 09/03/18 14:05 [place] % (Auto) 5.2 % (4.5-13.0) 09/03/18 14:05 Eos % (Auto) 0.1 % (0.6-7.6) L 09/03/18 14:05 Baso % (Auto) 0.1 % (0.3-1.7) L 09/03/18 14:05 Nucleat RBC Rel Count 0.0 % (0.0-0.2) 09/03/18 14:05 Absolute Neuts (auto) 13.74 10^3/uL (1.70-6.50) H 09/03/18 14:05 Absolute Lymphs (auto) 0.36 10^3/uL (1.00-3.00) L 09/03/18 14:05 Absolute Monos (auto) 0.78 10^3/uL (0.30-0.80) 09/03/18 14:05 Absolute Eos (auto) 0.02 10^3/uL (0.03-0.40) L 09/03/18 14:05 Absolute Basos (auto) 0.02 10^3/uL (0.02-0.10) 09/03/18 14:05 Absolute Nucleated RBC 0.00 10^3/uL (0-0.01) 09/03/18 14:05 Immature Gran % 0.9 % (0.0-1.1) 09/03/18 14:05 Immature Gran # 0.14 10^3/uL (0.00-0.10) H 09/03/18 14:05 RBC/WBC/PLT Morphology TNP 09/03/18 14:05 Platelet Estimate TNP 09/03/18 14:05 PT 27.6 SEC (12.0-15.0) H 09/03/18 14:05 INR 2.74 (0.83-1.16) H 09/03/18 14:05 APTT 44.1 SEC (23.0-38.0) H 09/03/18 14:05 VBG Lactic Acid 1.3 mmol/L (0.7-2.1) 09/03/18 14:55 POC Sodium 125 mEq/L (135-145) L 09/03/18 14:09 Sodium 123 mEq/L (135-145) L 09/03/18 14:05 POC Potassium 4.2 mEq/L (3.3-5.0) 09/03/18 14:09 Potassium 4.3 mEq/L (3.5-5.2) 09/03/18 14:05 POC Chloride 84 mEq/L (97-110) L 09/03/18 14:09 Chloride 85 mEq/L (97-110) L 09/03/18 14:05 Carbon Dioxide 27 mEq/l (22-31) 09/03/18 14:05 POC Total CO2 26 mEq/L (22-31) 09/03/18 14:09 Anion Gap 11 mEq/L (6-14) 09/03/18 14:05 POC BUN 29 mg/dL (7-23) H 09/03/18 14:09 BUN 33 mg/dL (7-23) H 09/03/18 14:05 Creatinine 1.2 mg/dL (0.7-1.3) 09/03/18 14:05 POC Creatinine 1.3 mg/dL (0.7-1.3) 09/03/18 14:09 Estimated GFR 58 09/03/18 14:05 Glucose 139 mg/dL (70-100) H 09/03/18 14:05 POC Glucose 145 mg/dL (70-100) H 09/03/18 14:09 Calcium 8.4 mg/dL (8.5-10.4) L 09/03/18 14:05 NT-Pro-B Natriuret Pep 6640 pg/mL (0-450) H 09/03/18 14:05 Patient ABO/Rh A POSITIVE 09/03/18 14:55 Antibody Screen NEGATIVE 09/03/18 14:55 Assessment & Plan Assessment: HCAP (healthcare-associated pneumonia) (Acute) - Presenting with SOB, CXR showing RUL and bibasilar patchy infiltrates, CT Chest performed showing multifocal PNA with possible superimposed pulmonary edema - WBC 15.05 on admission with tachypnea meeting SIRS criteria, no tachycardia or fever at time of admission - S/p Zosyn in ED, blood cultures collected prior to - Will continue Zosyn and add Vancomycin given recent hospitalization - Requiring 15L via NRB currently, wean 02 as tolerated Sepsis - WBC 15.05 on admission with tachypnea meeting SIRS criteria, no tachycardia or fever at time of admission - S/p 1L IVF in ED, will hold off on 30 cc/kg (~1.8 L) given superimposed edema on CXR, BP WNL on admission - LA 1.3 on admission - Continue Zosyn, added Vanco as above - F/u blood cultures Pulmonary Edema - Noted on CT as above - Was recently discharged on 40 mg BID PO Lasix - Mild pedal edema on admission, BNP elevated to 6640 - Recent TTE/CHRIS showing normal LVEF, severe TR - Will order Lasix 40 mg IVP once tonight, reevaluate in the morning for additional IVP - Cardiology consulted in ED, will see patient in the AM Hyponatremia (Acute) - In setting of Lasix as well as decreased PO intake - S/p 1L IVF in ED - Will repeat Na in the AM Hypoxia (Acute) - Requiring 15L NRB to maintain sats >88% - In setting of PNA and pulm edema, management as above - Wean 02 as tolerated CKD - Cr at baseline 1.2 (1.1-1.3) - Continue to monitor closely with IV diuresis VHD - Recent echo findings as above - Cardiology consult - Diuresis as above - Continue home Coumadin, INR 2.7 on admission Afib - Continue home Metoprolol and Amiodarone CAD - Continue home ASA, Statin BPH - Continue home Tamsulosin Multiple Rib Fractures - Recent admission, s/p ski accident - Continue home pain medications FEN: Regular DVT PPx: Home Coumadin Code: FULL Dispo: Admit to ICU given high 02 requirements
[2018-09-03] MEDS ORDERED: HYDROmorphONE/DILAUDID 2 MG TAB PO PRN (17:57)
[2018-09-03] MEDS ORDERED: POLYETHYLENE GLYCOL 3350 17 GM PKT PO PRN (17:57)
[2018-09-03] MEDS ORDERED: ALBUTEROL 60 PUFFS/8 GM MDI IH PRN (17:57)
[2018-09-03] MEDS: IPRATROPIUM/ALBUTEROL 3 ML DEYVIAL IH PRN (18:00)
[2018-09-03] MEDS ORDERED: FUROSEMIDE 40 MG/4 ML VIAL IVP ONE (18:06)
[2018-09-03] MEDS: VANCOMYCIN HCL/NORMAL SALINE 250 ML IV SCH (18:21)
[2018-09-03] MEDS: ACETAMINOPHEN 325 MG TAB PO PRN (18:29)
[2018-09-03] MEDS: HYDROCODONE/APAP 10/325 TAB PO PRN ×2 (18:30→22:34)
[2018-09-03] MEDS ORDERED: WARFARIN SODIUM 2 MG TAB PO SCH (21:00)
[2018-09-03] MEDS: METOPROLOL TARTRATE 25 MG TAB PO SCH (21:12)
[2018-09-03] MEDS: AMIODARONE HCL 200 MG TAB PO SCH (21:14)
[2018-09-03] MEDS: PIPERACILLIN/TAZO 4.5 GM/DEX 100 ML IV SCH (21:14)
[2018-09-03] MEDS ORDERED: CEPACOL LOZENGE PO ONE (22:33)
[2018-09-04] MEDS: PIPERACILLIN/TAZO 4.5 GM/DEX 100 ML IV SCH ×4 (03:23→21:11)
[2018-09-04] MEDS: HYDROCODONE/APAP 10/325 TAB PO PRN ×3 (03:26→19:37)
[2018-09-04 06:36] LABS: INR 3.21 (0.83-1.16); PROTIME(PATIENT) 31.2 SEC (12.0-15.0)
[2018-09-04 06:39] LABS: PLATELET COUNT 257 10^3/uL (150-400)
[2018-09-04] MEDS: IPRATROPIUM/ALBUTEROL 3 ML DEYVIAL IH PRN ×3 (08:25→20:25)
[2018-09-04] MEDS: ATORVASTATIN CALCIUM 40 MG TAB PO SCH (08:52)
[2018-09-04] MEDS: PANTOPRAZOLE SODIUM 40 MG TAB PO SCH (08:52)
[2018-09-04] MEDS: AMIODARONE HCL 200 MG TAB PO SCH ×2 (08:52→21:11)
[2018-09-04] MEDS: ASPIRIN EC 81 MG TAB PO SCH (08:52)
[2018-09-04] MEDS: TAMSULOSIN HCL 0.4 MG CAP PO SCH (08:52)
[2018-09-04] MEDS: METOPROLOL TARTRATE 25 MG TAB PO SCH ×2 (08:52→21:06)
--- NOTE | 2018-09-04 09:33 | SOAPPROG ---
SOAP Progress Note Assessment/Plan: Assessment: Cardiology SOAP note: 83 y/o man with following cardiac and medical issues: --sternotomy 2012 with MV repair --redo sternotomy 2016 with bioprosthetic MVR, TV repair and CABG --PAF/CHB with PPM --recurrent severe TR Fell and broke ribs skiing 13 days ago. Presented yesterday with worsening shortness of breath and 10lbs weight gain and bilateral pneumonia and acute on chronic diastolic CHF. REC: 1)lasix 60mg IV BID 2)aldactone 25mg PO qam. 3)KCL 20meq PO BID 4)rest of meds without changes. 5)continue IV abx and pulmonary toileting to help get up sputum with his rib fractures 6)qam (BMP) x 2-3 days. Thanks. Will follow with you. 09/04/18 09:29 Subjective: he is in pain in his rib cage. He is short of breath of breath at rest. Denies chest pressure, palpitations, fevers or PND or syncope. Objective: Vital Signs Temp Pulse Resp BP Pulse Ox 36.6 C 82 21 H 112/65 95 09/04/18 08:00 09/04/18 08:52 09/04/18 08:20 09/04/18 08:00 09/04/18 08:20 Laboratory Results 09/04/18 06:00 09/04/18 06:00 09/03/18 09/04/18 09/05/18 05:59 05:59 05:59 Intake Total 2442 Output Total 200 Balance 2242 PT 31.2 SEC (12.0-15.0) H 09/04/18 06:00 INR 3.21 (0.83-1.16) H 09/04/18 06:00 Physical Exam - Physical Exam General Appearance: alert EENT: normal ENT inspection Neck: full range of motion Respiratory: crackles, wheezing Cardiac/Chest: regular rate, rhythm, systolic murmur, No gallop Peripheral Pulses: 2+: carotid (R), carotid (L), femoral (R), femoral (L), dorsalis-pedis (R), dorsalis-pedis (L) Abdomen: non-tender, No guarding Skin: warm/dry Extremities: No pedal edema Neuro/Psych: alert ICD10 Worksheet Patient Problems: Problems Problem Status Onset Anticoagulated on Coumadin Acute Facial laceration Acute Fracture of right orbital wall Acute HCAP (healthcare-associated pneumonia) Acute Hyponatremia Acute Hypoxia Acute Multiple fractures of ribs, left side, initial encounter for closed fracture Acute
[2018-09-04] MEDS: SPIRONOLACTONE 25 MG TAB PO SCH (10:28)
[2018-09-04] MEDS: FUROSEMIDE 40 MG/4 ML VIAL IVP SCH ×2 (10:29→15:44)
--- NOTE | 2018-09-04 13:52 | PDMN ---
Medical Necessity Medical necessity: Pt meets IP criteria per & JOAO [id number]; est los >2 mn for eval/tx of healthcare associated pneumonia w/possible sepsis, tachypnea, pulmonary edema, hypoxia (requiring 15L O2 via NRB to maintain sats >88%) admit to ICU for close monitoring, Cardiology consult IV abx; comorbid advanced age, recent ski injury with multiple rib fxs, CKD, CHF, AFIB, CAD, VHD; per H&P & order 09/03/18
--- NOTE | 2018-09-04 14:18 | ASMTCMCOM ---
CM Note CM Note Notes: Patient admitted with SOB, hypoxia, PNA. He is s/p rib fractures 2 weeks ago after a skiing accident. He is normally quite active and independent. Lives w . PT/OT to [facility]. If patient needs home care, Case Management will arrange. Current CM Discharge plan: independent vs home care Date Signed: 09/04/2018 02:17 PM Electronically Signed By:Zuly Kolb RN
[2018-09-04] MEDS: POTASSIUM CL 20 MEQ TAB PO SCH (15:43)
--- NOTE | 2018-09-04 16:19 | HOSPPROG ---
Hospitalist Progress Note Assessment/Plan: HCAP (healthcare-associated pneumonia) (Acute) - Presenting with SOB, CXR showing RUL and bibasilar patchy infiltrates, CT Chest performed showing multifocal PNA with possible superimposed pulmonary edema - WBC 15.05 on admission with tachypnea meeting SIRS criteria, no tachycardia or fever at time of admission - S/p Zosyn in ED, blood cultures collected prior to - Will continue Zosyn and Vancomycin given recent hospitalization - Required 15L via NRB on admission, weaned to 7L this AM, continue to wean 02 as tolerated Sepsis - WBC 15.05 on admission with tachypnea meeting SIRS criteria, no tachycardia or fever at time of admission - S/p 1L IVF in ED, will hold off on 30 cc/kg (~1.8 L) given superimposed edema on CXR, BP WNL on admission - LA 1.3 on admission - Continue Zosyn, added Vanco as above - F/u blood cultures Acute CHF Exacerbation - Noted on CT as above - Was recently discharged on 40 mg BID PO Lasix - Mild pedal edema on admission, BNP elevated to 6640 - Recent TTE/CHRIS showing normal LVEF, severe TR - S/p Lasix 40 mg IVP last night - Cardiology consulted this AM, recommending Lasix 60 mg IVP BID, Aldactone 25 mg PO qAM, KCl 20 mg qd PO BID Hyponatremia (Acute) - In setting of Lasix as well as decreased PO intake - Na 123 on admission, 124 this AM - S/p 1L IVF in ED - Continue to monitor Hypoxia (Acute) - Requiring 15L NRB to maintain sats >88%, improved to 7L this AM - In setting of PNA and pulm edema, management as above - Wean 02 as tolerated CKD - Cr 1.2 on admission (1.1-1.3), 0.9 this AM - Continue to monitor closely with IV diuresis VHD - Recent echo findings as above - Cardiology consult - Diuresis as above - Continue home Coumadin, INR 2.7 on admission Afib - Continue home Metoprolol and Amiodarone CAD - Continue home ASA, Statin BPH - Continue home Tamsulosin Multiple Rib Fractures - Recent admission, s/p ski accident - Continue home pain medications FEN: Regular DVT PPx: Home Coumadin Code: FULL Dispo: Pending clinical course Subjective: Patient reports some improved SOB this AM Objective: Vital Signs Temp Pulse Resp BP Pulse Ox 37.1 C 81 19 124/69 H 94 09/04/18 15:52 09/04/18 15:52 09/04/18 15:52 09/04/18 15:52 09/04/18 15:52 Laboratory Results 09/04/18 06:00 09/04/18 06:00 09/03/18 09/04/18 09/05/18 05:59 05:59 05:59 Intake Total 2442 Output Total 200 350 Balance 2242 -350 PT 31.2 SEC (12.0-15.0) H 09/04/18 06:00 INR 3.21 (0.83-1.16) H 09/04/18 06:00 - Physical Exam Constitutional: no apparent distress Eyes: PERRL Ears, Nose, Mouth, Throat: moist mucous membranes Cardiovascular: regular rate and rhythym Respiratory: no respiratory distress, reduced air movement Gastrointestinal: soft, non-tender abdomen Skin: warm Musculoskeletal: pain with ROM Neurologic: AAOx3 Psychiatric: interacting appropriately ICD10 Worksheet Patient Problems: Problems Problem Status Onset Anticoagulated on Coumadin Acute Facial laceration Acute Fracture of right orbital wall Acute HCAP (healthcare-associated pneumonia) Acute Hyponatremia Acute Hypoxia Acute Multiple fractures of ribs, left side, initial encounter for closed fracture Acute
[2018-09-04] MEDS: CEPACOL LOZENGE PO PRN (16:51)
[2018-09-04] MEDS: VANCOMYCIN HCL/NORMAL SALINE 250 ML IV SCH (18:14)
[2018-09-04] MEDS: ZOLPIDEM TARTRATE 5 MG TAB PO PRN (21:11)
[2018-09-05] MEDS: PIPERACILLIN/TAZO 4.5 GM/DEX 100 ML IV SCH ×2 (03:30→11:43)
[2018-09-05] MEDS: HYDROCODONE/APAP 10/325 TAB PO PRN ×2 (04:51→22:02)
--- NOTE | 2018-09-05 08:19 | PDCONSULT ---
Security Delivery Specialist Note: ASSESSMENT 83 yo male with prior sternotomy due to CABG and MVR as well as diastolic heart failure and recent rib fractures while skiing readmitted with shortness of breath in the setting of decompensated acute heart failure as well as possible pneumonia. # acute hypoxemic respiratory failure. Improving with supplemental oxygen, diuresis and antibiotics # pneumonia. Some risk factors for Hcap however given radiographic images I suspect most of this is due to pulmonary edema and less infection. # acute on chronic diastolic heart failure. Responding well diuresis. Appreciate management per Dr. Delacruz # paroxysmal atrial fibrillation with complete heart block and pacemaker PLAN # agree with aggressive diuresis # continue abx, will narrow tomorrow assuming cx data negative, although I suspect the majority of patient's decompensation is cardiac related given elevated NT Pro BNP, weight gain, and imaging that is c/w pulmonary edema # hold warfarin until INR less than 3. # wean supplemental oxgyen as tolerated # I/S and valve peep for CPT # conservative mgmt for recent rib fractures # Feeding - cardiac diet # Analgesia APAP # Sedation none # Thromboprophylaxis - SQ hep # Head of bed elevated # Ulcer prophylaxis - H2 emilia # Glucose SSI # Skin no skin breakdown # Delirium - delirium precautions CX Data IMAGING I reviewed interpreted radiographic images well as formal radiology reads 09/02/2018 CT chest focal patchy bilateral infiltrates with bilateral pleural effusions. Increased interseptal thickening CC Shortness of breath HPI I was asked by Sheng farah in hospital Medicine to evaluate Stephen Torres for ICU care in the setting of acute hypoxemic respiratory failure and pneumonia. Stephen is a very pleasant 83-year-old male with a complicated past medical history including mitral valve repair, tricuspid valve repair, CABG and chronic diastolic heart failure who was admitted 2 weeks prior after a skiing accident where he fell and broke multiple ribs. He was discharged doing well however over the last few days he is developed increasing shortness of breath pink frothy sputum and weight gain. He denies significant chest pain other than his rib fracture pain which is significantly better. Denies fevers, chills, nausea , vomiting, syncope. He also states his appetite is been poor however has continued to drink excessive fluids. He was seen by his primary care recently. Allergies No drug allergies multiple food allergies Medication Medication reconciliation has been performed. See EMR for details Past medical history Atrial fibrillation, complete heart block requiring pacemaker, coronary disease status post CABG, MVR, TVR Family history Coronary disease Social history Nonsmoker lives with Review of systems A comprehensive 10 point review of systems was obtained is negative except as per HPI Exam Vitals. Reviewed interpreted significant for hypoxemia requiring 10 L nasal cannula. GEN: Mild respiratory distress. Lying in bed. NEURO: A&Ox3, CN 2-12 GI HEENT: PERRL, EOMI, MMM, OP clear NECK: supple, trachea midline CHEST normal shape, no pes excavatum CVS: rrr no m/r/g PULM: Rales bilateral bases, mild excess dyspnea, no use of accessory muscles ABD: soft, NT, ND, NABS EXT: no swelling, no cyanosis, full ROM SKIN: warm, dry, intact, no rash PSYCH CAM negative, appropriate affect
[2018-09-05 08:31] LABS: INR 4.36 (0.83-1.16); PROTIME(PATIENT) 39.4 SEC (12.0-15.0)
[2018-09-05] MEDS ORDERED: FUROSEMIDE 100 MG/10 ML VIAL IVP SCH (10:00)
--- NOTE | 2018-09-05 10:55 | SOAPPROG ---
SOAP Progress Note Assessment/Plan: Assessment: Cardiology SOAP note: 83 y/o man with following cardiac and medical issues: --sternotomy 2012 with MV repair --redo sternotomy 2016 with bioprosthetic MVR, TV repair and CABG --PAF/CHB with PPM --recurrent severe TR Fell and broke ribs skiing 13 days ago. Presented two days ago with worsening shortness of breath and 10lbs weight gain and bilateral pneumonia and acute on chronic diastolic CHF. He is diuresing and feeling better but not at baseline. REC: 1)increase Lasix to 80mg IV BID 2)hold coumadin until INR < 3.0 3)rest of meds without changes. 4)AM labs (09/06)... CBC and BMP and PT/INR. 09/05/18 10:51 Subjective: feels better. Less short of breath at rest. Denies chest pressure or near syncope. No fevers or hemoptysis or purulent sputum production. Objective: Vital Signs Temp Pulse Resp BP Pulse Ox 36.1 C 81 23 H 115/63 94 09/05/18 04:00 09/05/18 08:15 09/05/18 08:15 09/05/18 08:15 09/05/18 08:15 Laboratory Results 09/04/18 06:00 09/05/18 05:50 09/04/18 09/05/18 09/06/18 05:59 05:59 05:59 Intake Total 2442 1095 Output Total 200 1625 Balance 2242 -530 PT 39.4 SEC (12.0-15.0) H 09/05/18 08:00 INR 4.36 (0.83-1.16) H 09/05/18 08:00 Physical Exam - Physical Exam General Appearance: alert EENT: normal ENT inspection Neck: full range of motion Respiratory: rales, wheezing (bibasilar but improved from yesterday) Cardiac/Chest: regular rate, rhythm, systolic murmur, No gallop, No JVD Peripheral Pulses: 2+: carotid (R), carotid (L), femoral (R), femoral (L), dorsalis-pedis (R), dorsalis-pedis (L) Abdomen: non-tender, No guarding, No rebound, No ascites Skin: warm/dry Extremities: pedal edema (trace bilateral pretibial edema.) Neuro/Psych: alert ICD10 Worksheet Patient Problems: Problems Problem Status Onset Anticoagulated on Coumadin Acute Chronic Disease Mgmt/Transitional Care Acute Facial laceration Acute Fracture of right orbital wall Acute HCAP (healthcare-associated pneumonia) Acute Hyponatremia Acute Hypoxia Acute Multiple fractures of ribs, left side, initial encounter for closed fracture Acute
[2018-09-05] MEDS: PANTOPRAZOLE SODIUM 40 MG TAB PO SCH (11:26)
[2018-09-05] MEDS: AMIODARONE HCL 200 MG TAB PO SCH ×2 (11:26→22:03)
[2018-09-05] MEDS: TAMSULOSIN HCL 0.4 MG CAP PO SCH (11:26)
[2018-09-05] MEDS: METOPROLOL TARTRATE 25 MG TAB PO SCH ×2 (11:26→22:03)
[2018-09-05] MEDS: SPIRONOLACTONE 25 MG TAB PO SCH (11:26)
[2018-09-05] MEDS: ATORVASTATIN CALCIUM 40 MG TAB PO SCH (11:27)
[2018-09-05] MEDS: ASPIRIN EC 81 MG TAB PO SCH (11:27)
[2018-09-05] MEDS: AZITHROMYCIN 250 MG TAB PO SCH (11:32)
[2018-09-05] MEDS: POTASSIUM CL 20 MEQ TAB PO SCH ×2 (11:32→16:24)
[2018-09-05] MEDS: FUROSEMIDE 40 MG/4 ML VIAL IVP SCH (11:43)
[2018-09-05] MEDS: FUROSEMIDE 100 MG/10 ML VIAL IVP SCH (16:23)
--- NOTE | 2018-09-05 16:44 | HOSPPROG ---
Hospitalist Progress Note Assessment/Plan: HCAP (healthcare-associated pneumonia) (Acute) - Presenting with SOB, CXR showing RUL and bibasilar patchy infiltrates, CT Chest performed showing multifocal PNA with possible superimposed pulmonary edema - WBC 15.05 on admission with tachypnea meeting SIRS criteria, no tachycardia or fever at time of admission - S/p Zosyn in ED, blood cultures collected prior to, NGTD - Will continue Zosyn and Vancomycin given recent hospitalization, likely narrow to Zosyn tomorrow - Required 15L via NRB on admission, weaned to 7L this AM, continue to wean 02 as tolerated Sepsis - WBC 15.05 on admission with tachypnea meeting SIRS criteria, no tachycardia or fever at time of admission - S/p 1L IVF in ED, will hold off on 30 cc/kg (~1.8 L) given superimposed edema on CXR, BP WNL on admission - LA 1.3 on admission - Continue Zosyn, added Vanco as above - F/u blood cultures Acute CHF Exacerbation - Noted on CT as above - Was recently discharged on 40 mg BID PO Lasix - Mild pedal edema on admission, BNP elevated to 6640 - Recent TTE/CHRIS showing normal LVEF, severe TR - S/p Lasix 40 mg IVP last night - Cardiology consulted, recommending increasing to Lasix 80 mg IVP BID, Aldactone 25 mg PO qAM, KCl 20 mg qd PO BID Hyponatremia (Acute) - In setting of Lasix as well as decreased PO intake - Na 123 on admission, 126 this AM - S/p 1L IVF in ED - Continue to monitor Hypoxia (Acute) - Requiring 15L NRB to maintain sats >88%, improved to 7L this AM - In setting of PNA and pulm edema, management as above - Wean 02 as tolerated CKD - Cr 1.2 on admission (1.1-1.3), 1.0 this AM - Continue to monitor closely with IV diuresis VHD - Recent echo findings as above - Cardiology consult - Diuresis as above - Continue home Coumadin, INR 2.7 on admission Afib - Continue home Metoprolol and Amiodarone CAD - Continue home ASA, Statin BPH - Continue home Tamsulosin Multiple Rib Fractures - Recent admission, s/p ski accident - Continue home pain medications FEN: Regular DVT PPx: Home Coumadin Code: FULL Dispo: Pending clinical course Subjective: Patient reports bringing up mucus this AM Objective: Vital Signs Temp Pulse Resp BP Pulse Ox 36.6 C 81 21 H 126/74 H 93 09/05/18 15:50 09/05/18 15:50 09/05/18 15:50 09/05/18 15:50 09/05/18 15:50 Laboratory Results 09/04/18 06:00 09/05/18 05:50 09/04/18 09/05/18 09/06/18 05:59 05:59 05:59 Intake Total 2442 1095 Output Total 200 1625 375 Balance 2242 -530 -375 PT 39.4 SEC (12.0-15.0) H 09/05/18 08:00 INR 4.36 (0.83-1.16) H 09/05/18 08:00 - Physical Exam Constitutional: chronically ill appearing Eyes: PERRL Ears, Nose, Mouth, Throat: moist mucous membranes Cardiovascular: regular rate and rhythym Respiratory: no respiratory distress Gastrointestinal: soft, non-tender abdomen Skin: warm Musculoskeletal: generalized weakness Neurologic: AAOx3 Psychiatric: interacting appropriately ICD10 Worksheet Patient Problems: Problems Problem Status Onset Anticoagulated on Coumadin Acute Chronic Disease Mgmt/Transitional Care Acute Facial laceration Acute Fracture of right orbital wall Acute HCAP (healthcare-associated pneumonia) Acute Hyponatremia Acute Hypoxia Acute Multiple fractures of ribs, left side, initial encounter for closed fracture Acute
[2018-09-06] MEDS: ZOLPIDEM TARTRATE 5 MG TAB PO PRN (00:06)
[2018-09-06] MEDS: HYDROCODONE/APAP 10/325 TAB PO PRN ×2 (02:25→21:22)
[2018-09-06 05:51] LABS: PLATELET COUNT 280 10^3/uL (150-400)
[2018-09-06 06:04] LABS: INR 4.51 (0.83-1.16); PROTIME(PATIENT) 40.4 SEC (12.0-15.0)
[2018-09-06] MEDS: METOPROLOL TARTRATE 25 MG TAB PO SCH ×2 (08:35→20:47)
[2018-09-06] MEDS: FUROSEMIDE 100 MG/10 ML VIAL IVP SCH ×2 (08:35→16:33)
[2018-09-06] MEDS: AZITHROMYCIN 250 MG TAB PO SCH (08:35)
[2018-09-06] MEDS: TAMSULOSIN HCL 0.4 MG CAP PO SCH (08:36)
[2018-09-06] MEDS: ASPIRIN EC 81 MG TAB PO SCH (08:36)
[2018-09-06] MEDS: POTASSIUM CL 20 MEQ TAB PO SCH ×2 (08:36→16:33)
[2018-09-06] MEDS: PANTOPRAZOLE SODIUM 40 MG TAB PO SCH (08:36)
[2018-09-06] MEDS: AMIODARONE HCL 200 MG TAB PO SCH ×2 (08:36→20:47)
[2018-09-06] MEDS: SPIRONOLACTONE 25 MG TAB PO SCH (08:36)
[2018-09-06] MEDS: ATORVASTATIN CALCIUM 40 MG TAB PO SCH (08:36)
--- NOTE | 2018-09-06 09:11 | HOSPPROG ---
Hospitalist Progress Note Assessment/Plan: #Acutely decompensated diastolic HF: cont IV Lasix #Hyponatremia: due to volume overload, decreased PO intake #PAF: holding Coumadin until INR <3 #HCAP: Azithro #Sepsis: due to PNA #Atrial fibrillation: BB, Amiodarone #VHD: severe TR, sp TV repair and bioprosthetic MVR #CAD: ASA, statin, BB #BPH: Flomax #Rib fractures: from ski accident. Incentive spirometry #Diet: cardiac #DVT ppx: INR >3 #Disp: inpatient admission for IV diuresis Subjective: mild SOB Objective: Vital Signs Temp Pulse Resp BP Pulse Ox 36.3 C 80 20 99/68 L 97 09/06/18 07:51 09/06/18 07:51 09/06/18 07:51 09/06/18 07:51 09/06/18 07:51 Laboratory Results 09/06/18 05:22 09/06/18 05:22 09/05/18 09/06/18 09/07/18 05:59 05:59 05:59 Intake Total 1095 715 Output Total 1625 1425 Balance -530 -710 PT 40.4 SEC (12.0-15.0) H 09/06/18 05:22 INR 4.51 (0.83-1.16) H 09/06/18 05:22 - Time Spent With Patient Time Spent with Patient: greater than 35 minutes Time Spent with Patient: Greater than 35 minutes spent on this patients care, greater than 50% of time spent counseling, educating, and coordinating care regarding the above mentioned plan. - Physical Exam Constitutional: no apparent distress Eyes: other (periorbital ecchymoses) Ears, Nose, Mouth, Throat: moist mucous membranes Cardiovascular: regular rate and rhythym, edema (+1 pedal edema) Respiratory: other (decreased BS at bases) Gastrointestinal: normoactive bowel sounds Genitourinary: no bladder fullness Skin: warm Musculoskeletal: full muscle strength Neurologic: AAOx3, CN II-XII Intact Psychiatric: interacting appropriately ICD10 Worksheet Patient Problems: Problems Problem Status Onset Anticoagulated on Coumadin Acute Facial laceration Acute Fracture of right orbital wall Acute HCAP (healthcare-associated pneumonia) Acute Hyponatremia Acute Hypoxia Acute Chronic Disease Mgmt/Transitional Care Acute Multiple fractures of ribs, left side, initial encounter for closed fracture Acute
--- NOTE | 2018-09-06 11:51 | SOAPPROG ---
SOAP Progress Note Assessment/Plan: Assessment: 1. Acute hypoxic respiratory failure. This is likely multifactorial. There does appear to be a component of CHF, however, his exam also suggests a diffuse pulmonary process likely splinting and associated atelectasis and possibly pneumonia. With antibiotics, pulmonary toilet diuretics he appears to be improving. 2. History of calcific mitral valve disease. He has had 2 previous sternotomies. Most recently in 2016 he underwent tricuspid valve repair with bioprosthetic mitral valve placement. Unfortunately, he has suffered early tricuspid valve failure and has severe tricuspid regurgitation. 3. Paroxysmal atrial fibrillation. He is on amiodarone and appears to be maintaining sinus rhythm. Historically, he has been anticoagulated with Coumadin. 4. History of complete heart block with previous permanent pacemaker implantation. 5. Coronary artery disease. He has had previous single-vessel bypass surgery. Plan: 1. Agree with continued IV Lasix, antibiotics and pulmonary toilet. 2. Continue to hold warfarin in the setting of a supratherapeutic INR. 3. Will follow his electrolytes and CBC carefully. 4. We will follow along with you. Subjective: He is well known to me from my outpatient clinic. He states that he is feeling a little bit better than he did at the time of admission. He still has significant chest wall pain. His oxygen requirements have improved significantly. Objective: Vital Signs Temp Pulse Resp BP Pulse Ox 36.3 C 80 20 99/68 L 97 09/06/18 07:51 09/06/18 07:51 09/06/18 07:51 09/06/18 07:51 09/06/18 07:51 Laboratory Results 09/06/18 05:22 09/06/18 05:22 09/05/18 09/06/18 09/07/18 05:59 05:59 05:59 Intake Total 1095 715 Output Total 1625 1425 Balance -530 -710 PT 40.4 SEC (12.0-15.0) H 09/06/18 05:22 INR 4.51 (0.83-1.16) H 09/06/18 05:22 Physical Exam - Physical Exam General Appearance: WD/WN EENT: other (Positive JVD bilaterally, ecchymoses appreciated around the right orbit) Respiratory: other (Diffuse, bilateral, anterior and posterior coarse inspiratory rales with scattered wheezes) Cardiac/Chest: regular rate, rhythm, edema (Trace lower extremity edema), JVD ( To the angle of the jaw bilaterally), systolic murmur (2/6 holosystolic murmur left sternal border), other (Pacemaker in place) Peripheral Pulses: 2+: carotid (R), carotid (L) Abdomen: normal bowel sounds, non-tender Rectal: deferred ICD10 Worksheet Patient Problems: Problems Problem Status Onset Chronic Disease Mgmt/Transitional Care Acute Multiple fractures of ribs, left side, initial encounter for closed fracture Acute Anticoagulated on Coumadin Acute Hyponatremia Acute Hypoxia Acute Facial laceration Acute Fracture of right orbital wall Acute HCAP (healthcare-associated pneumonia) Acute
[2018-09-06] MEDS ORDERED: POLYETHYLENE GLYCOL 3350 17 GM PKT PO PRN (12:11)
[2018-09-06] MEDS ORDERED: LACTULOSE 20 GM/30 ML UDCUP PO PRN (12:11)
[2018-09-06] MEDS ORDERED: BISACODYL 10 MG SUPP PR PRN (12:11)
[2018-09-06] MEDS ORDERED: MAGNESIUM HYDROXIDE 30 ML UDCUP PO PRN (12:11)
[2018-09-06] MEDS: SENNOSIDES/DOCUSATE SODIUM TAB PO SCH (20:47)
[2018-09-07] MEDS: CEPACOL LOZENGE PO PRN (00:11)
[2018-09-07 06:49] LABS: INR 4.16 (0.83-1.16)
[2018-09-07] MEDS: PANTOPRAZOLE SODIUM 40 MG TAB PO SCH (09:13)
[2018-09-07] MEDS: AZITHROMYCIN 250 MG TAB PO SCH (09:13)
[2018-09-07] MEDS: SENNOSIDES/DOCUSATE SODIUM TAB PO SCH ×3 (09:13→22:32)
[2018-09-07] MEDS: METOPROLOL TARTRATE 25 MG TAB PO SCH ×2 (09:13→22:25)
[2018-09-07] MEDS: ATORVASTATIN CALCIUM 40 MG TAB PO SCH (09:13)
[2018-09-07] MEDS: ASPIRIN EC 81 MG TAB PO SCH (09:13)
[2018-09-07] MEDS: SPIRONOLACTONE 25 MG TAB PO SCH (09:14)
[2018-09-07] MEDS: FUROSEMIDE 100 MG/10 ML VIAL IVP SCH ×2 (09:14→14:56)
[2018-09-07] MEDS: POTASSIUM CL 20 MEQ TAB PO SCH ×2 (09:14→14:56)
[2018-09-07] MEDS: AMIODARONE HCL 200 MG TAB PO SCH ×2 (09:14→22:29)
[2018-09-07] MEDS: TAMSULOSIN HCL 0.4 MG CAP PO SCH (09:14)
--- NOTE | 2018-09-07 09:47 | SOAPPROG ---
SOAP Progress Note Assessment/Plan: Assessment: 1. Acute hypoxic respiratory failure. This is likely multifactorial. There does appear to be a slight component of CHF, however, his exam also suggests a diffuse pulmonary process likely splinting and associated atelectasis and possibly pneumonia especially in the right upper lung colon. With antibiotics , pulmonary toilet diuretics he appears to be improving. 2. History of calcific mitral valve disease. He has had 2 previous sternotomies. Most recently in 2016 he underwent tricuspid valve repair with bioprosthetic mitral valve placement. Unfortunately, he has suffered early tricuspid valve failure and has severe tricuspid regurgitation. 3. Paroxysmal atrial fibrillation. He is on amiodarone and appears to be maintaining sinus rhythm. Historically, he has been anticoagulated with Coumadin. His Coumadin has been held in light of increased INRs above 4. 4. History of complete heart block with previous permanent pacemaker implantation. 5. Coronary artery disease. He has had previous single-vessel bypass surgery. 09/07/2018: He appears to be stable over the last 24 hr to slightly improved. He does continue to have a 4 L oxygen requirement to maintain saturations in the mid 90% range. Net fluid balance yesterday was affectively balanced. Plan: 1. We will plan to continue 80 mg of Lasix IV twice daily. 2. Will check electrolytes tomorrow. 3. Continue antibiotics and pulmonary toilet. 4. I have ordered a chest x-ray for today. 5. We will follow along with you. 09/07/18 09:47 Subjective: He states that every day feels a little bit better. Today he is able to get up in a chair and take deeper breaths. He does continue to have significant chest discomfort with very deep inspiration and cough. Objective: Vital Signs Temp Pulse Resp BP Pulse Ox 36.5 C 80 80 H 122/64 H 95 09/07/18 08:00 09/07/18 09:13 09/07/18 08:00 09/07/18 09:13 09/07/18 08:00 Laboratory Results 09/06/18 05:22 09/07/18 06:25 09/06/18 09/07/18 09/08/18 05:59 05:59 05:59 Intake Total 715 1470 Output Total 1425 1500 Balance -710 -30 PT 38.0 SEC (12.0-15.0) H 09/07/18 06:25 INR 4.16 (0.83-1.16) H 09/07/18 06:25 Physical Exam - Physical Exam General Appearance: WD/WN, alert, no apparent distress Neck: non-tender, full range of motion Respiratory: other (Decreased breath sounds at both bases bilaterally, coarse rales appreciated in the anterior lung colon superiorly more so on the right than the left) Cardiac/Chest: regular rate, rhythm, edema (Trace), JVD, systolic murmur (2/6 holosystolic murmur left sternal border), other (Positive JVD), No gallop, No bradycardia, No tachycardia Peripheral Pulses: 2+: carotid (R), carotid (L) Abdomen: non-tender, soft Male Genitalia: deferred Rectal: deferred Neuro/Psych: alert, oriented x 3 ICD10 Worksheet Patient Problems: Problems Problem Status Onset Chronic Disease Mgmt/Transitional Care Acute Multiple fractures of ribs, left side, initial encounter for closed fracture Acute Anticoagulated on Coumadin Acute Hyponatremia Acute Hypoxia Acute Facial laceration Acute Fracture of right orbital wall Acute HCAP (healthcare-associated pneumonia) Acute
--- NOTE | 2018-09-07 09:52 | HOSPPROG ---
Hospitalist Progress Note Assessment/Plan: #Acutely decompensated diastolic HF: -cont Lasix 80mg IV BID, follow lytes #Hyponatremia: due diuresis, decreased PO -encourage Ensure, PO intake #PAF: holding Coumadin until INR <3 #HCAP: Day 4/5 abx #Sepsis: due to PNA #Atrial fibrillation: BB, Amiodarone #VHD: severe TR, sp TV repair and bioprosthetic MVR #CAD: ASA, statin, BB #BPH: Flomax #Rib fractures: from ski accident. Incentive spirometry #Diet: cardiac #DVT ppx: INR >3 #Disp: inpatient admission for IV diuresis, labs. Family at bedside and questions answered Subjective: walking the unit. Pain left rib cage with activity Objective: Vital Signs Temp Pulse Resp BP Pulse Ox 36.5 C 80 80 H 122/64 H 95 09/07/18 08:00 09/07/18 09:13 09/07/18 08:00 09/07/18 09:13 09/07/18 08:00 Laboratory Results 09/06/18 05:22 09/07/18 06:25 09/06/18 09/07/18 09/08/18 05:59 05:59 05:59 Intake Total 715 1470 Output Total 1425 1500 Balance -710 -30 PT 38.0 SEC (12.0-15.0) H 09/07/18 06:25 INR 4.16 (0.83-1.16) H 09/07/18 06:25 - Time Spent With Patient Time Spent with Patient: greater than 35 minutes Time Spent with Patient: Greater than 35 minutes spent on this patients care, greater than 50% of time spent counseling, educating, and coordinating care regarding the above mentioned plan. - Physical Exam Constitutional: no apparent distress Eyes: PERRL Ears, Nose, Mouth, Throat: moist mucous membranes Cardiovascular: regular rate and rhythym, edema (+2 ankle edema) Respiratory: other (decreased BS at bases) Gastrointestinal: normoactive bowel sounds Genitourinary: No [place] in urethra Skin: warm Musculoskeletal: full muscle strength Neurologic: AAOx3, CN II-XII Intact Psychiatric: interacting appropriately ICD10 Worksheet Patient Problems: Problems Problem Status Onset Chronic Disease Mgmt/Transitional Care Acute Multiple fractures of ribs, left side, initial encounter for closed fracture Acute Anticoagulated on Coumadin Acute Hyponatremia Acute Hypoxia Acute Facial laceration Acute Fracture of right orbital wall Acute HCAP (healthcare-associated pneumonia) Acute
--- NOTE | 2018-09-07 14:22 | ASMTCMCOM ---
CM Note CM Note Notes: CM met w/ pt and Arielle for dispo planning. Therapies are recommending SNF. CM provided them w/ senior blue book. They would like referrals made to [facility] and [facility]. Referrals sent. Non triggering pasrr completed. Pt is uncertain if he wants to d/c to SNF. Pt is more keen on discharging home w/ HC services. Arielle reports that they have a large network of friends/family for support and supervision for the times that she is unable to care for pt. CM to follow. Plan: TBD Date Signed: 09/07/2018 02:21 PM Electronically Signed By:PATSY Brown
--- NOTE | 2018-09-07 15:02 | PDINTPN ---
Vibratory Pile Driver Progress Note Assessment/Plan: ASSESSMENT 83 yo male with prior sternotomy due to CABG and MVR as well as diastolic heart failure and recent rib fractures while skiing readmitted with shortness of breath in the setting of decompensated acute heart failure and pna # acute hypoxemic respiratory failure. Improving with supplemental oxygen, diuresis and antibiotics # pneumonia. clinically improving # acute on chronic diastolic heart failure. Elevated NT pro BNP, edema and pulm edema on admission. Responding well diuresis. Appreciate management per cardiology. # paroxysmal atrial fibrillation with complete heart block and pacemaker PLAN # agree with BID lasix, however given persistent edema and oral intake may need to increase diuretics # daily weights # complete 5 day course for CAPa # continue warfarin # wean supplemental oxgyen as tolerated # I/S and valve peep for CPT # conservative mgmt for recent rib fractures # Feeding - cardiac diet # Analgesia APAP # Sedation none # Thromboprophylaxis - warfarin # Head of bed elevated # Ulcer prophylaxis - H2 emilia # Glucose SSI # Skin no skin breakdown # Delirium - delirium precautions IMAGING I personally reviewed patient's radiographic images well as formal radiology reads. 09/07/2018 CXR persistent patchy pulmonary opacifications and small bilateral effusions Subjective: Continues to improve however still with edema and significant oral intake. Ambulating well however weak. No falls. No fevers, chills, nausea vomiting. Still with oxygen requirement Objective: Vital Signs Temp Pulse Resp BP Pulse Ox 36.8 C 80 23 H 125/62 H 93 09/07/18 12:24 09/07/18 12:24 09/07/18 12:24 09/07/18 12:24 09/07/18 12:24 Laboratory Results 09/06/18 05:22 09/07/18 06:25 09/06/18 09/07/18 09/08/18 05:59 05:59 05:59 Intake Total 715 1470 420 Output Total 1425 1500 800 Balance -710 -30 -380 PT 38.0 SEC (12.0-15.0) H 09/07/18 06:25 INR 4.16 (0.83-1.16) H 09/07/18 06:25 Physical Exam - Physical Exam General Appearance: alert, no apparent distress EENT: PERRL/EOMI, normal ENT inspection, pharynx normal, other (Ecchymoses sternal , oral pharynx intact) Neck: non-tender, full range of motion Respiratory: chest non-tender, lungs clear, normal breath sounds Cardiac/Chest: normal peripheral pulses, regular rate, rhythm, edema Abdomen: normal bowel sounds, non-tender, soft, No organomegaly Skin: normal color, warm/dry, No cyanosis Extremities: normal range of motion, non-tender Neuro/Psych: no motor/sensory deficits, alert, normal mood/affect, oriented x 3 ICD10 Worksheet Patient Problems: Problems Problem Status Onset Anticoagulated on Coumadin Acute Facial laceration Acute Fracture of right orbital wall Acute HCAP (healthcare-associated pneumonia) Acute Hyponatremia Acute Hypoxia Acute Chronic Disease Mgmt/Transitional Care Acute Multiple fractures of ribs, left side, initial encounter for closed fracture Acute
[2018-09-07] MEDS: CETIRIZINE 10 MG TAB PO SCH (18:04)
[2018-09-07] MEDS: ACETAMINOPHEN 325 MG TAB PO PRN (22:29)
[2018-09-08 05:16] LABS: INR 3.61 (0.83-1.16); PROTIME(PATIENT) 34.1 SEC (12.0-15.0)
[2018-09-08] MEDS: ATORVASTATIN CALCIUM 40 MG TAB PO SCH (08:25)
[2018-09-08] MEDS: PANTOPRAZOLE SODIUM 40 MG TAB PO SCH (08:25)
[2018-09-08] MEDS: CETIRIZINE 10 MG TAB PO SCH (08:25)
[2018-09-08] MEDS: METOPROLOL TARTRATE 25 MG TAB PO SCH ×2 (08:25→20:59)
[2018-09-08] MEDS: SPIRONOLACTONE 25 MG TAB PO SCH (08:26)
[2018-09-08] MEDS: TAMSULOSIN HCL 0.4 MG CAP PO SCH (08:26)
[2018-09-08] MEDS: ASPIRIN EC 81 MG TAB PO SCH (08:26)
[2018-09-08] MEDS: POTASSIUM CL 20 MEQ TAB PO SCH ×2 (08:26→16:11)
[2018-09-08] MEDS: SENNOSIDES/DOCUSATE SODIUM TAB PO SCH ×2 (08:27→20:58)
[2018-09-08] MEDS: FUROSEMIDE 100 MG/10 ML VIAL IVP SCH (08:27)
[2018-09-08] MEDS: AMIODARONE HCL 200 MG TAB PO SCH ×2 (08:27→21:00)
--- NOTE | 2018-09-08 10:37 | HOSPPROG ---
Hospitalist Progress Note Assessment/Plan: #Acutely decompensated diastolic HF: -wt 65kg (BL per [employer] review). D/w Dr. Purdy to determine when trial orals #Hyponatremia: due diuresis, decreased PO. Mildly improved. -encourage Ensure for solute #PAF: holding Coumadin until INR <3 #HCAP: complete 5 days abx today #Sepsis: due to PNA #Atrial fibrillation: BB, Amiodarone #VHD: severe TR, sp TV repair and bioprosthetic MVR #CAD: ASA, statin, BB #BPH: Flomax #Rib fractures: from ski accident. Incentive spirometry #Diet: cardiac #DVT ppx: INR >3 #Disp: inpatient admission for IV diuresis, labs. Family at bedside and questions answered Subjective: SOB improved. Walking with PT Objective: Vital Signs Temp Pulse Resp BP Pulse Ox 36.3 C 80 21 H 110/64 94 09/08/18 07:24 09/08/18 08:25 09/08/18 07:24 09/08/18 08:25 09/08/18 07:24 Laboratory Results 09/06/18 05:22 09/08/18 04:43 09/07/18 09/08/18 09/09/18 05:59 05:59 05:59 Intake Total 1470 1500 Output Total 1500 2550 Balance -30 -1050 PT 34.1 SEC (12.0-15.0) H 09/08/18 04:43 INR 3.61 (0.83-1.16) H 09/08/18 04:43 - Physical Exam Constitutional: no apparent distress Eyes: PERRL Ears, Nose, Mouth, Throat: moist mucous membranes Cardiovascular: regular rate and rhythym, edema (+1-2 ankle edema) Respiratory: reduced air movement (decreased at bases) ICD10 Worksheet Patient Problems: Problems Problem Status Onset Anticoagulated on Coumadin Acute Facial laceration Acute Fracture of right orbital wall Acute HCAP (healthcare-associated pneumonia) Acute Hyponatremia Acute Hypoxia Acute Chronic Disease Mgmt/Transitional Care Acute Multiple fractures of ribs, left side, initial encounter for closed fracture Acute
--- NOTE | 2018-09-08 15:34 | ASMTCMCOM ---
CM Note CM Note Notes: Patient would like to go home with home care. His requested a referral to [facility], and they have accepted. Patient will also be followed by [facility] transitional care for his PNA. He is well-supported at home. I have alerted the SNFs that they may discard his referral. Case Management will follow. Date Signed: 09/08/2018 03:32 PM Electronically Signed By:Zuly Kolb RN
--- NOTE | 2018-09-08 16:02 | PDINTPN ---
Bag Adjuster Progress Note Assessment/Plan: ASSESSMENT 83 yo male with prior sternotomy due to CABG and MVR as well as diastolic heart failure and recent rib fractures while skiing readmitted with shortness of breath in the setting of decompensated acute heart failure and pna # Acute hypoxemic respiratory failure. Improving with supplemental oxygen, diuresis and antibiotics. # Pneumonia. clinically improved. Off antibiotics. # Acute on chronic diastolic heart failure. Elevated BNP, edema and pulm edema on admission. Responding well diuresis. Cardiology following # Paroxysmal atrial fibrillation with complete heart block and pacemaker. Rhythm is paced or sinus PLAN # continue Lasix twice daily orally with spironolactone # follow daily weights # follow chest x-ray intermittently # continue warfarin # wean supplemental oxgyen as tolerated # I/S and valve peep for CPT # conservative mgmt for recent rib fractures # nutrition - eating, on a cardiac diet # Analgesia APAP # Sedation none # Thromboprophylaxis - warfarin # Ulcer prophylaxis - on pantoprazole # hyperglycemia, on SSI # Skin: no breakdown # Delirium precautions 30 minutes of critical care time spent directly with the patient. Discussed issues with the patient and his , nursing, respiratory. Subjective: Feels better. Remains weak. Walked in the halls with walker. Not able to bring up any sputum. Objective: Vital Signs Temp Pulse Resp BP Pulse Ox 36.3 C 82 20 118/72 95 09/08/18 07:24 09/08/18 11:44 09/08/18 11:44 09/08/18 11:44 09/08/18 11:44 Laboratory Results 09/06/18 05:22 09/08/18 04:43 09/07/18 09/08/18 09/09/18 05:59 05:59 05:59 Intake Total 1470 1500 320 Output Total 1500 2550 Balance -30 -1050 320 PT 34.1 SEC (12.0-15.0) H 09/08/18 04:43 INR 3.61 (0.83-1.16) H 09/08/18 04:43 Laboratory Tests 09/08/18 09/08/18 04:43 04:43 PT 34.1 H INR 3.61 H Calcium 7.4 L Chest x-ray and CT scans reviewed on PACS. Physical Exam - Physical Exam General Appearance: alert, no apparent distress, other (In a recliner chair.) EENT: PERRL/EOMI, other (Nasal cannula in place at 2 L) Neck: normal inspection (No obvious JVD) Respiratory: decreased breath sounds (And excursions), rales (Rales present at the right base. No obvious consolidation), No rhonchi, No wheezing Cardiac/Chest: regular rate, rhythm, No gallop Abdomen: normal bowel sounds, non-tender, soft Male Genitalia: other (No Salvador catheter, using urinal) Skin: warm/dry, pallor Extremities: pedal edema (Trace +) Neuro/Psych: no motor/sensory deficits (Moves all extremities weakly), No cognition abnormalities ICD10 Worksheet Patient Problems: Problems Problem Status Onset Anticoagulated on Coumadin Acute Facial laceration Acute Fracture of right orbital wall Acute HCAP (healthcare-associated pneumonia) Acute Hyponatremia Acute Hypoxia Acute Chronic Disease Mgmt/Transitional Care Acute Multiple fractures of ribs, left side, initial encounter for closed fracture Acute
[2018-09-08] MEDS: FUROSEMIDE 40 MG TAB PO SCH (16:11)
--- NOTE | 2018-09-08 16:29 | PDCARPN ---
Cardiology Progress Note Assessment/Plan: Assessment: 1. Acute the respiratory failure. Most likely multifactorial secondary to multiple, left-sided rib fractures coupled with pneumonia. 2. Paroxysmal atrial fibrillation. Rhythm control and anticoagulation strategy with amiodarone and Coumadin 3. 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 4. Severe tricuspid regurgitation. Status post tricuspid valve repair with early valve repair failure. Currently with severe tricuspid regurgitation and moderate pulmonary hypertension. 5. Complete heart block: Status post permanent pacemaker implantation 6. Coronary disease. Status post single-vessel CABG 7. Hyponatremia. Gradual improvement in sodium. Currently 127. Plan: Agree with plan to change oral diuretics today No other changes to medications Encourage ambulation Dispo: most likely stable for discharge home tomorrow with home health. 09/08/18 16:25 Subjective: MR. Torres continues to make gradual improvments. He has been up walking the hallways several times today. Now resting in chair. States he feels, "50% better than when he arrived". Denies PND, ortoponea, dizziness, near syncope. Sodium continues to gradually improve, currently 127. (124 on 08/07). Reviewed/Discussed With: family, hospitalist Objective: Vital Signs (8 Hrs) Pulse Resp BP Pulse Ox 09/08/18 11:44 82 20 118/72 95 09/08/18 08:25 80 110/64 Intake/Output (24 Hrs) 09/07/18 09/08/18 09/09/18 05:59 05:59 05:59 Intake Total 1470 1500 320 Output Total 1500 2550 Balance -30 -1050 320 Intake: Oral (ml) 1470 1440 240 IV Intake (ml) 60 80 Output: Urine (ml) 1500 2550 Toilet 1850 Urinal 1500 700 Other: Weight 65.136 kg Intake Quantity Yes Sufficient Number of Voids Toilet 1 1 2 Urinal 3 3 Number of Stools Toilet 1 1 Result Diagrams: 09/06/18 05:22 09/08/18 04:43 - Physical Exam Constitutional: no apparent distress Cardiovascular: regular rate and rhythm, no rubs, no gallops, systolic murmur Peripheral Pulses: 2+: carotid (R), carotid (L) Respiratory: clear to auscultate bilat, no crackles, no wheezes Gastrointestinal: normoactive bowel sounds Skin: no rashes Neurologic: AAOx3, CN II-XII grossly intact Psychiatric: cooperative, interactive, following commands ICD10 Worksheet Patient Problems: Problems Problem Status Onset Anticoagulated on Coumadin Acute Facial laceration Acute Fracture of right orbital wall Acute HCAP (healthcare-associated pneumonia) Acute Hyponatremia Acute Hypoxia Acute Chronic Disease Mgmt/Transitional Care Acute Multiple fractures of ribs, left side, initial encounter for closed fracture Acute
[2018-09-08] MEDS: ACETAMINOPHEN 325 MG TAB PO PRN (21:00)
[2018-09-09] MEDS: CEPACOL LOZENGE PO PRN (03:39)
[2018-09-09 05:53] LABS: INR 2.79 (0.83-1.16)
[2018-09-09 07:39] VITALS: BP 132/74
[2018-09-09] MEDS: CETIRIZINE 10 MG TAB PO SCH (08:03)
[2018-09-09] MEDS: SENNOSIDES/DOCUSATE SODIUM TAB PO SCH ×2 (08:03→08:09)
[2018-09-09] MEDS: ASPIRIN EC 81 MG TAB PO SCH (08:04)
[2018-09-09] MEDS: METOPROLOL TARTRATE 25 MG TAB PO SCH (08:04)
[2018-09-09] MEDS: PANTOPRAZOLE SODIUM 40 MG TAB PO SCH (08:04)
[2018-09-09] MEDS: AMIODARONE HCL 200 MG TAB PO SCH (08:04)
[2018-09-09] MEDS: FUROSEMIDE 40 MG TAB PO SCH (08:04)
[2018-09-09] MEDS: POTASSIUM CL 20 MEQ TAB PO SCH (08:04)
[2018-09-09] MEDS: ATORVASTATIN CALCIUM 40 MG TAB PO SCH (08:04)
[2018-09-09] MEDS: TAMSULOSIN HCL 0.4 MG CAP PO SCH (08:04)
[2018-09-09] MEDS: SPIRONOLACTONE 25 MG TAB PO SCH (08:05)
--- NOTE | 2018-09-09 11:37 | HOSPPROG ---
Hospitalist Progress Note Assessment/Plan: DIAGNOSES: * Acute sepsis, now resolved * Acute hypoxemic respiratory failure * Community-acquired pneumonia * Acute decompensation diastolic congestive heart failure, with BNP 6600 - improving with diuresis * Bilateral pleural effusions likely from heart failure * Recent rib fractures from a skiing accident * Hypervolemic hyponatremia responding to diuretic * Chronic atrial fibrillation on beta-blockers and amiodarone * Chronic valvular heart disease status post bioprosthetic mitral valve and with a repaired tricuspid valve * History of coronary disease, stable PLANS: * Discharge home today Seen by me on hospitalist rounds today and I reviewed with Dr. Antolin Vasquez SUBJECTIVE: feeling better overall OBJECTIVE Vitals reviewed: Stable without fever Oxygen: Using 3-4 L nasal cannula Exam: alert oriented skin warm dry color ok resps not labored lungs clear BSs heart regular abd soft nondistended nontender, bowel sounds present limbs warm, no edema iv site ok Lab data: Sodium up to 129 Potassium stable, renal function stable Imaging: I reviewed images of today's chest x-ray with Dr. Antolin Vasquez and compared with previous x-rays. Continues to improve, still some infiltrate in upper lobes primarily right-sided. Effusions are smaller Objective: Vital Signs Temp Pulse Resp BP Pulse Ox 36.6 C 80 15 132/74 H 94 09/09/18 07:35 09/09/18 00:00 09/09/18 07:35 09/09/18 07:35 09/09/18 07:35 Microbiology 09/03/18 14:55 Blood Culture - Final Blood Laboratory Results 09/06/18 05:22 09/09/18 05:10 09/08/18 09/09/18 09/10/18 06:59 06:59 06:59 Intake Total 1500 1280 Output Total 2550 780 400 Balance -1050 500 -400 PT 28.0 SEC (12.0-15.0) H 09/09/18 05:10 INR 2.79 (0.83-1.16) H 09/09/18 05:10 ICD10 Worksheet Patient Problems: Problems Problem Status Onset Anticoagulated on Coumadin Acute Facial laceration Acute Fracture of right orbital wall Acute HCAP (healthcare-associated pneumonia) Acute Hyponatremia Acute Hypoxia Acute Chronic Disease Mgmt/Transitional Care Acute Multiple fractures of ribs, left side, initial encounter for closed fracture Acute
--- NOTE | 2018-09-09 11:54 | PDDCSUM ---
Discharge Summary Discharge Summary: DISCHARGE DIAGNOSES: * Acute hypoxemic respiratory failure * Acute decompensation diastolic left-sided congestive heart failure * Community-acquired pneumonia, no organism identified on blood cultures * Acute sepsis resolved * Bilateral pleural effusions * Recent rib fractures from a skiing accident * Hypervolemic hyponatremia * Chronic atrial fibrillation * Chronic valvular heart disease status post surgeries for mitral and tricuspid * History of coronary artery disease stable CONSULTANTS: Dr. Evaristo Delacruz PROCEDURES: CT scan of chest HOSPITAL COURSE SUMMARY: This patient, who had been recovering from recent rib fractures from his fall while skiing, presented to the hospital with worsening shortness of breath, cough, and low-grade fever. He has found a dense infiltrates in the right upper lobe predominantly with also some left lung infiltrate and bilateral pleural effusions. There was evidence of acute diastolic congestive heart failure as well. There is no evidence of ischemia and his heart rhythm was sinus Patient is admitted the hospital treated with antibiotics, pulmonary toilet, and diuresis. He has improved quite nicely is up walking the hallways without difficulty. Feels quite notably better at this time. Fevers have resolved. He has diuresed nicely. His stable for discharge to home PENDING TEST RESULTS: None MEDICATION CHANGES: Addition of Aldactone 25 mg daily FOLLOW-UP PLAN: In Cardiology Clinic in 2 weeks In pulmonology clinic in 2 weeks Greater than 35 minutes bedside and care coordination time today
--- NOTE | 2018-09-09 12:16 | PDINTPN ---
Pediatric Acute Care Unit Nurse Progress Note Assessment/Plan: ASSESSMENT 83 yo male with prior sternotomy due to CABG and MVR as well as diastolic heart failure and recent rib fractures while skiing readmitted with shortness of breath in the setting of decompensated acute heart failure and pna # Acute hypoxemic respiratory failure. Improving with supplemental oxygen, diuresis and antibiotics. # Pneumonia: clinically improved. Off antibiotics. # Acute on chronic diastolic heart failure. Elevated BNP, edema and pulm edema on admission. Responded well diuresis. Cardiology following as well. # Paroxysmal atrial fibrillation with complete heart block and pacemaker. Rhythm is paced or sinus PLAN # home today # continue Lasix 40 twice daily as an outpatient with spironolactone. He was on this coming in... Follow-up with Cardiology as directed. # continue warfarin # to go home on supplemental oxygen at 2-3 L # Tylenol for rib pain at this point, antitussives if needed Patient will follow-up with me in the office in 3-4 weeks. A follow-up chest x- ray will be done at that time. 30 minutes spent directly with the patient. Discussed issues with the patient and his , hospitalist, and nursing. Subjective: Feels better. Still with some cough and colored mucus. Not much residual chest pain. Objective: Vital Signs Temp Pulse Resp BP Pulse Ox 36.6 C 80 15 132/74 H 94 09/09/18 07:35 09/09/18 00:00 09/09/18 07:35 09/09/18 07:35 09/09/18 07:35 Microbiology 09/03/18 14:55 Blood Culture - Final Blood Laboratory Results 09/06/18 05:22 09/09/18 05:10 09/08/18 09/09/18 09/10/18 05:59 05:59 05:59 Intake Total 1500 1280 Output Total 2550 780 400 Balance -1050 500 -400 PT 28.0 SEC (12.0-15.0) H 09/09/18 05:10 INR 2.79 (0.83-1.16) H 09/09/18 05:10 Laboratory Tests 09/09/18 05:10 PT 28.0 H INR 2.79 H CXR: Improving right upper lobe/right lower lobe infiltrates and congestive heart failure. Heart size is smaller. Physical Exam - Physical Exam General Appearance: alert, no apparent distress EENT: PERRL/EOMI, other (Nasal cannula oxygen in place at 3 L) Neck: normal inspection (No JVD) Respiratory: lungs clear (Anteriorly), decreased breath sounds (At bases), rales (Rales present at bases), No rhonchi (No zoë rhonchi but some central congestion persists with cough), No wheezing Cardiac/Chest: regular rate, rhythm (Paced for the most part) Abdomen: normal bowel sounds, non-tender, soft Male Genitalia: other (Using urinal) Skin: warm/dry, pallor Extremities: pedal edema (Trace +) Neuro/Psych: no motor/sensory deficits, No cognition abnormalities ICD10 Worksheet Patient Problems: Problems Problem Status Onset Chronic Disease Mgmt/Transitional Care Acute Multiple fractures of ribs, left side, initial encounter for closed fracture Acute Anticoagulated on Coumadin Acute Hyponatremia Acute Hypoxia Acute Facial laceration Acute Fracture of right orbital wall Acute HCAP (healthcare-associated pneumonia) Acute
--- NOTE | 2018-09-09 13:48 | ASMTLACE ---
LACE Length of stay for Answers: 4-6 days current admission Acuity / Level of Answers: Yes Care: Did the patient have an inpatient admission? Comorbidities - select Answers: Coronary Artery Disease all that apply Other Notes: AFib # of Emergency department Answers: 1-2 visits in the last 6 months Score: 11 Date Signed: 09/09/2018 01:48 PM Electronically Signed By:PATSY Waldrop
--- NOTE | 2018-09-09 13:48 | ASDISCHSUM ---
Discharge Information Plan Status:Home with Home Health Medically Cleared to Leave: Discharge Date: D/C Disposition:Home Health Service [facility] D/C Disposition:Home, Routine, Self-Care Projected Discharge Date:09/09/2018 11:00 AM Transportation at D/C:Family Discharge Delay Reason: Follow-Up Date:09/09/2018 11:00 AM Discharge Slot: Final Diagnosis: Placement Information Referral Type:*Snf/SNF Referral ID:[id number] Provider Name: Address 1: Phone Number: Address 2: Fax Number: City: Selection Factors: State: Referral Type:*Home Health Care Services Referral ID:[id number] Provider Name:[facility] Address 1:[address] [address] Address 2: City:[place] Selection Factors: State:[place] Patient Contact Information Contact Name:BENYJOSE RAULTAYLER Relationship: Address:[address] City:[place] Alternate Phone: State/Zip Code:[place] [address] Email: Financial Information Financial Class:Medicare Primary Plan Desc:MEDICARE INPATIENT Primary Plan Number:[id number] Secondary Plan Desc:PEE/ANTOINE SUPPLEMENT Secondary Plan Number:[id number] Assessment Information [facility] CM Progress Note CM Note CM Note Notes: Patient admitted with SOB, hypoxia, PNA. He is s/p rib fractures 2 weeks ago after a skiing accident. He is normally quite active and independent. Lives w . PT/OT to eval. If patient needs home care, Case Management will arrange. Current CM Discharge plan: independent vs home care Date Signed: 09/04/2018 02:17 PM Electronically Signed By:Zuly Kolb RN [facility] CM Progress Note CM Note CM Note Notes: CM met w/ pt and Arielle for dispo planning. Therapies are recommending SNF. CM provided them w/ senior blue book. They would like referrals made to [facility] and [facility]. Referrals sent. Non triggering pasrr completed. Pt is uncertain if he wants to d/c to SNF. Pt is more keen on discharging home w/ HC services. Arielle reports that they have a large network of friends/family for support and supervision for the times that she is unable to care for pt. CM to follow. Plan: TBD Date Signed: 09/07/2018 02:21 PM Electronically Signed By:PATSY Brown [facility] CM Progress Note CM Note CM Note Notes: Patient would like to go home with home care. His requested a referral to [facility] and they have accepted. Patient will also be followed by [facility] transitional care for his PNA. He is well-supported at home. I have alerted the SNFs that they may discard his referral. Case Management will follow. Date Signed: 09/08/2018 03:32 PM Electronically Signed By:Zuly Kolb RN Case Management Discharge Plan Note Case Management Discharge Discharge Order Complete? Answers: Yes Patient to Obtain Answers: via Family Medications Transportation Arranged Answers: Family/Friends Faxed Final Orders Answers: Yes Agency/Facility Transfer Answers: Yes Report Printed & Faxed to Receiving Agency Family Notified Answers: Yes Discharge Comments Notes: CM met with pt and family to discuss discharge plans. Pt linked with [facility], CM provided education on the process and confirmed contact information. [facility] in hospital today and met with pt and family prior to discharge. Pt also followed by Transitional Care. Pt is getting discharged on O2; Respiratory aware. no other CM needs identified. Date Signed: 09/09/2018 01:47 PM Electronically Signed By:PATSY Waldrop Intervention Information
--- NOTE | 2018-09-09 13:55 | PDCARPN ---
Cardiology Progress Note Chief Complaint: Mr. Torres is doing well. no complaints. He is stable for discharge home. Assessment/Plan: Assessment: 1. Acute the respiratory failure. Most likely multifactorial secondary to multiple, left-sided rib fractures coupled with pneumonia. 2. Paroxysmal atrial fibrillation. Rhythm control and anticoagulation strategy with amiodarone and Coumadin 3. 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 4. Severe tricuspid regurgitation. Status post tricuspid valve repair with early valve repair failure. Currently with severe tricuspid regurgitation and moderate pulmonary hypertension. 5. Complete heart block: Status post permanent pacemaker implantation 6. Coronary disease. Status post single-vessel CABG 7. Hyponatremia. Gradual improvement in sodium. Currently 127. Plan: Discharge home on Lasix 40 mg bid Continue out patient doses of Metoprolol, Amiodarone, Aldactone Continue Coumadin, followed by [facility] at [facility] Follow up with Gopi Motley NP on Saturday [facility] 2018 at 10:30 am in the [place] office. Reviewed/Discussed With: family Objective: Vital Signs (8 Hrs) Temp Resp BP Pulse Ox 09/09/18 07:35 36.6 C 15 132/74 H 94 Intake/Output (24 Hrs) 09/08/18 09/09/18 09/10/18 05:59 05:59 05:59 Intake Total 1500 1280 Output Total 2550 780 400 Balance -1050 500 -400 Intake: Oral (ml) 1440 1200 IV Intake (ml) 60 80 Output: Urine (ml) 2550 780 400 Toilet 1850 Urinal 700 780 400 Other: Weight 65.136 kg 63.1 kg Number of Voids Toilet 1 4 1 Urinal 3 1 1 Number of Stools Toilet 1 2 Result Diagrams: 09/06/18 05:22 09/09/18 05:10 - Physical Exam Neurologic: AAOx3, CN II-XII grossly intact Psychiatric: cooperative, interactive, following commands ICD10 Worksheet Patient Problems: Problems Problem Status Onset Chronic Disease Mgmt/Transitional Care Acute Multiple fractures of ribs, left side, initial encounter for closed fracture Acute Anticoagulated on Coumadin Acute Hyponatremia Acute Hypoxia Acute Facial laceration Acute Fracture of right orbital wall Acute HCAP (healthcare-associated pneumonia) Acute
--- NOTE | 2018-09-09 18:15 | PDIAF ---
- Diagnosis Diagnosis: Pneumonia, rib fractures, gait instability Code Status: Full Code - Medication Management Discharge Medications: electronically signed and located in the Home Medication List. - Orders Services needed: Home Care, Registered Nurse, Physical Therapy, Occupational Therapy Home Care Face to Face: I certify that this patient was under my care and that I had the required [id number] encounter meeting the encounter requirements on the discharge day. My findings support the fact that the patient is homebound as defined in Home Care Face to Face Continued: CMS Chapter 7 Medicare Benefits Manual 30.1.1 , The condition of the patient is such that there exists a normal inability to leave home and consequently, leaving home would require a considerable and taxing effort. Oxygen: Nasal cannula Diet Recommendation: cardiac -low fat low salt Diet Texture: Regular Texture Diet Additional Instructions: 2 gram (2000 mg) sodium diet make an appointment to follow up in cardiology clinic [phone] make an appointment to follow up in pulmonology clinic [phone] activity as tolerated - Follow Up Care Current Providers and Referrals: KENNY JONES [Primary Care Provider] - As per Instructions
== END 2018-09-09 14:00 | disposition home health service (06) | DRG 871 ==
LOC: F2N 17:28
PROVIDERS: ADMIT Internal Medicine; ATTEND Internal Medicine
PROC: 0HQ1XZZ Repair Face Skin, External Approach (ICD-10-PCS; principal; 2018-09-03)
DX: A41.9 Sepsis, unspecified organism (principal); J96.01 Acute respiratory failure with hypoxia; J18.9 Pneumonia, unspecified organism; I50.33 Acute on chronic diastolic (congestive) heart failure; J90 Pleural effusion, not elsewhere classified; E87.1 Hypo-osmolality and hyponatremia; S01.111A Laceration without foreign body of right eyelid and periocular area, initial encounter; W19.XXXA Unspecified fall, initial encounter; E86.9 Volume depletion, unspecified; E87.70 Fluid overload, unspecified; I25.10 Atherosclerotic heart disease of native coronary artery without angina pectoris; I48.2 Chronic atrial fibrillation; S22.42XD Multiple fractures of ribs, left side, subsequent encounter for fracture with routine healing; V00.328D Other snow-ski accident, subsequent encounter; N18.9 Chronic kidney disease, unspecified; N40.0 Benign prostatic hyperplasia without lower urinary tract symptoms; Z95.0 Presence of cardiac pacemaker; Z95.1 Presence of aortocoronary bypass graft
CPT/HCPCS: 82435-PO; 82565-PO; 82947-PO; 84132-PO; 84295-PO; 84520-PO; 85014-ER; 96365; 97116-GP; 97161-GP; 97165-GO; 97530-GO; 97530-GP; 97535-GO; J0696; J1940; J2543; J3370

== ENCOUNTER 2018-11-04 10:57 | Day surgery (SDC) | payer OTHER, MEDICARE ==
[2018-11-04] MEDS ORDERED: DIAZEPAM 5 MG TAB PO ONE (11:07)
[2018-11-04] MEDS ORDERED: diphenhydrAMINE 25 MG CAP PO ONE (11:07)
[2018-11-04] MEDS ORDERED: NS 1,000 ML IV ONE (11:07)
[2018-11-04] MEDS ORDERED: BACITRACIN IRRIGATION/NS 50,000 UNITS/1,000 ML BTL IRR ONE (11:07)
[2018-11-04] MEDS ORDERED: ceFAZolin 2 GM/DEXTROSE 100 ML IV ONE (11:07)
[2018-11-04 11:59] LABS: PLATELET COUNT 140 10^3/uL (150-400)
[2018-11-04 12:10] LABS: INR 1.41 (0.83-1.16); PROTIME(PATIENT) 16.6 SEC (12.0-15.0)
[2018-11-04] MEDS ORDERED: MIDAZOLAM 2 MG/2 ML VIAL ONE (12:45)
[2018-11-04] MEDS ORDERED: fentaNYL 100 MCG/2 ML INJ ONE (12:45)
[2018-11-04] MEDS ORDERED: LIDOCAINE 1% 300 MG/30 ML SDV ONE (12:45)
[2018-11-04] MEDS ORDERED: LIDO/EPI 1% **for epidural** 30 ML SDV ONE ×2 (12:46→14:06)
[2018-11-04] MEDS ORDERED: BUPIVACAINE 0.5% 30 ML SDV ONE (12:46)
--- NOTE | 2018-11-04 13:10 | PDPROPOC ---
Sedation Plan of Care Sedation Plan of Care: vital signs stable, mental status noted, patient educated of risks, benefits, alternatives, patient can tolerate sedation ASA Classification: ASA 1 Planned drugs: fentanyl, midazolam Mallampati Score: Class 1 Mallampati Reference Image: Patient passed 3-3-2 rule?: Yes
--- NOTE | 2018-11-04 14:06 | PDCTREPORT ---
Cardiothoracic Procedure Rpt Cardiothoracic Procedure Report: Procedure: Pacemaker generator change with revision of the pacemaker pocket After obtaining informed consent patient brought to the cardiac catheterization lab in the fasting state. The old scar was anesthetized in the left subclavian fossa. Using a 10 blade an incision was made through the old scar. Using combination of the Bovie catheter and blunt dissection the pacemaker pocket was entered. The generator was delivered to the field. The lead from the ventricular port was removed and attached to the external pacer. The atrial lead was then detached from the old generator and the old generator was taken from the field. The pocket was extended distally and medially. It was copiously irrigated. A new generator was delivered to the field and attached to both leads. Set screws were tightened after confirming serial numbers. The entire system was coiled into the pocket. Standard three-layer closure was used to close the pocket and skin. Pressure dressings applied the patient is taken to recovery for continued care. Conclusions: Complete heart block status post successful pacemaker generator change. Patient Problems: Problems Problem Status Onset Chronic Disease Mgmt/Transitional Care Acute Multiple fractures of ribs, left side, initial encounter for closed fracture Acute Anticoagulated on Coumadin Acute Hyponatremia Acute Hypoxia Acute Facial laceration Acute Fracture of right orbital wall Acute HCAP (healthcare-associated pneumonia) Acute
== END 2018-11-04 16:16 | disposition home or self-care (01) ==
LOC: FCATH 10:57
PROVIDERS: ATTEND Internal Medicine Interventional Cardiology
DX: Z45.010 Encounter for checking and testing of cardiac pacemaker pulse generator [battery] (principal); I44.2 Atrioventricular block, complete
CPT/HCPCS: C1785; J0690; J2250; J3010